=== PATIENT | female | born 1945 | race Caucasian/White ===

== ENCOUNTER → 2017-07-17 | Outpatient (CLI) | payer MEDICARE, OTHER ==
--- NOTE | 2017-07-19 15:46 | PE ---
Nuclear medicine PET/CT HISTORY: Breast cancer, initial Patient received 13.5 mCi F-18 FDG intravenously in delayed scanning performed from the skull base to the mid thighs. Localization and attenuation correction CT scan was performed. No comparisons Neck and chest: Adenopathy, multiple nodes are present within the left axilla, there is associated hypermetabolic upt sravan present within multiple nodes, SUV is only 2.6 and the smallest, 5.8 and largest node, 3 or 4 nod e suspected. Left breast mass is present with associated hypermetabolic uptake extending from the sof t tissue mass to the skin, SUV is greatest at 5.4. There is no evident lung mass. No pleural or peric ardial effusion. Coronary artery calcification present. No mediastinal adenopathy. There is right hil ar hypermetabolic uptake present, SUV is 5. Postop change noted to the right shoulder. Abdomen pelvis: No evident liver mass or retroperitoneal adenopathy. No suspicious hypermetabolic upt sravan. No evident ascites. Nonobstructive lower pole right renal calculus is noted incidentally. Cystic right adnexal mass shows internal septations and measures approximately 3 cm, no associated hypermet abolic uptake. Osseous structures are within normal limits. Degenerative disc change, facet arthropathy in the lumba r spine. No suspicious hypermetabolic uptake. IMPRESSION: Metastatic disease to the left axilla, abnormal hilar node on the right.
== END | disposition home or self-care (01) ==
LOC: RADPETMAIN 08:15
PROVIDERS: ATTEND Internal Medicine Hematology & Oncology
DX: C50.412 Malignant neoplasm of upper-outer quadrant of left female breast (principal); C79.89 Secondary malignant neoplasm of other specified sites
CPT/HCPCS: 78815; A9552

== ENCOUNTER → 2018-02-17 | Outpatient (CLI) | payer MEDICARE, OTHER ==
--- NOTE | 2018-02-17 10:24 | US ---
EXAMINATION TYPE: US venous doppler duplex UE RT DATE OF EXAM: 02/17/2018 COMPARISON: NONE CLINICAL HISTORY: M79.621 Pain in right upper arm, R22.31 Localized. Intermittent arm swelling, recen t hosp stay with right sided IV sticks SIDE PERFORMED: right Grayscale, color doppler, spectral doppler imaging performed of the deep veins of the right upper ext remity. There is normal flow, compressibility and vascular waveforms. Right Arm: neg for RUE dvt Results left on Lisa's machine at office at the time of the exam. IMPRESSION: No sonographic evidence of deep venous thrombosis within the right upper extremity.
== END | disposition home or self-care (01) ==
LOC: RADUSWWP 09:23
PROVIDERS: ATTEND Internal Medicine Hematology & Oncology
DX: M79.621 Pain in right upper arm (principal); R22.31 Localized swelling, mass and lump, right upper limb

== ENCOUNTER → 2019-10-26 | Outpatient (CLI) | payer MEDICARE, OTHER ==
[2019-10-26 09:53] LABS: African American GFR (CKD) >90 (>60 ml/min/1.73 sqM); Blood Urea Nitrogen 15 mg/dL (7-17); Non-African American GFR(CKD) 84 (>60 ml/min/1.73 sqM)
--- NOTE | 2019-10-26 11:47 | CT ---
EXAMINATION TYPE: CT ChestAbdPelvis w con DATE OF EXAM: 10/26/2019 COMPARISON: None HISTORY: BREAST CA F/U CT DLP: 2229.3 mGycm CONTRAST: CT scan of the chest, abdomen and pelvis is performed with Oral Contrast and with IV Contrast, patien t injected with 100 mL of Isovue 300. CT Chest: LUNGS: The lungs are clear and free of infiltrate or atelectasis. No pulmonary nodule or mass is det ected. No pleural effusion or CT evidence of interstitial lung disease. MEDIASTINUM: Thoracic aorta is of normal caliber. The heart is not enlarged. No evidence for media stinal mass or adenopathy. HILAR STRUCTURES: No evidence for mass. No hilar adenopathy is appreciated. OTHER: No significant abnormality. CONTRAST CT ABDOMEN AND PELVIS FINDINGS: LIVER/GB: No calcified gallstones. Simple hepatic cysts are noted. Biliary tree is of normal calibe r. PANCREAS: No inflammation. No distinct mass. SPLEEN: No splenic enlargement. No lesion seen. ADRENALS: No nodule. No thickening. KIDNEYS/BLADDER: No hydronephrosis. Large calculus mid to upper pole right kidney measuring 1.4 cm w ithout hydronephrosis. Bilobed cystic lesion mid pole right kidney extending posteriorly. Simple cyst mid to upper pole left kidney measuring 1.6 cm.. No distinct solid renal mass. BOWEL: Normal appendix. Normal bowel caliber. No inflammation. GENITAL ORGANS: Partially cystic mass right ovary measures 3.5 cm. Pelvic ultrasound is recommended f or further evaluation. Left ovary and uterus are unremarkable. LYMPH NODES: No greater than 1cm abdominal or pelvic lymph nodes are appreciated. AORTA: No significant abnormality. OSSEOUS STRUCTURES: No significant abnormality is seen. OTHER: No significant additional abnormality is seen. IMPRESSION: 1. No CT evidence to suggest metastatic disease to the chest abdomen or pelvis. 2. Right ovarian mass measures 3.5 cm. Pelvic ultrasound is recommended for further evaluation.
== END | disposition home or self-care (01) ==
LOC: RADCTMAIN 09:05
PROVIDERS: ATTEND Internal Medicine Hematology & Oncology
DX: N83.8 Other noninflammatory disorders of ovary, fallopian tube and broad ligament (principal); C50.419 Malignant neoplasm of upper-outer quadrant of unspecified female breast; Z88.5 Allergy status to narcotic agent
CPT/HCPCS: 82565; 84520; 71260; 74177; 36415; Q9967

== ENCOUNTER → 2019-11-03 | Outpatient (CLI) | payer MEDICARE, OTHER ==
--- NOTE | 2019-11-03 14:19 | US ---
EXAMINATION TYPE: US transvaginal DATE OF EXAM: 11/03/2019 COMPARISON: CT 2019 CLINICAL HISTORY: C50.419 Breast ca, R19.00 Pelvic mass rt ovary. Right ovarian mass seen on recent C T, 3, para 3, post menopausal, history of breast CA TECHNIQUE: Transvaginal exam only per ordering physician. Date of LMP: 1998 EXAM MEASUREMENTS: Uterus: 5.9 x 2.8 x 4.5 cm Endometrial Stripe: 0.5 cm Right Ovary: 3.7 x 3.3 x 2.9 cm Left Ovary: not seen 1. Uterus: anteverted, heterogeneous with multiple hypoechoic areas with largest measuring 1.7 x 1.5 x 1.5cm 2. Endometrium: wnl 3. Right Ovary: 3 hyperechoic areas seen with largest measuring 1.4 x 1.5 x 1.8cm 4. Left Ovary: not seen 5. Bilateral Adnexa: wnl 6. Posterior cul-de-sac: wnl IMPRESSION: 1. Multiple uterine masses likely in the basis of the uterine leiomyomas. 2. Right ovarian mass with 3 hyperechoic components may reflect dermoid. Mass of other etiology not e xcluded. Short-term follow-up advised.
== END | disposition home or self-care (01) ==
LOC: RADUSWWP 13:15
PROVIDERS: ATTEND Internal Medicine Hematology & Oncology
DX: N85.8 Other specified noninflammatory disorders of uterus (principal); N83.8 Other noninflammatory disorders of ovary, fallopian tube and broad ligament
CPT/HCPCS: 76830

== ENCOUNTER 2019-12-01 10:11 | Day surgery (SDC) | payer MEDICARE, OTHER ==
--- NOTE | 2019-11-23 20:39 | P.HPIHPCON ---
History of Present Illness H&P Date: 12/01/19 Chief Complaint: right-sided renal calculi Ms Hernandez 74-year-old female history of 1.4 cm right-sided renal calculi. Discussed with her the options of which includes observation, ESWL, ureteroscopy, and PCNL. She agreed to proceed with right-sided ureteroscopy. Discussed with her the risk and the benefit of the procedure. Discussed with her the risk which includes but not limited to bleeding, infection, injury to the ureter. I also discussed with her the potential of needing staged procedure given her stone size Consent for Procedure: I have explained the operation/procedure to the patient, including the risks, benefits, side effects, alternative therapies (including not receiving the proposed treatment or service), the likelihood of the patient achieving his/her goals, and potential recuperation problems for the procedure/sedation/analgesia, as well as any blood products, if indicated. I also explained to the patient the risks, benefits and side effects of the alternatives, as well as the risks related to not receiving the proposed procedure, care, treatment, or services. - Constitutional Constitutional: Denies chills, Denies fever - Cardiovascular Cardiovascular: Denies chest pain, Denies shortness of breath - Respiratory Respiratory: Denies cough, Denies 7 - Gastrointestinal Gastrointestinal: Denies abdominal pain, Denies diarrhea, Denies nausea, Denies vomiting - Genitourinary (Female) Genitourinary: Denies dysuria, Denies hematuria Past Medical History Past Medical History: GERD/Reflux, Hypertension Additional Past Medical History / Comment(s): RIGHT HAND INFECTION History of Any Multi-Drug Resistant Organisms: None Reported Past Surgical History: Joint Replacement, Orthopedic Surgery, Tonsillectomy Additional Past Surgical History / Comment(s): TOTAL RIGHT KNEE REPLACED. ORTHO: RIGHT TOTATOR CUFF, RIGHT BONE SPUR. RIGHT DETACHED RETINA. BILATERAL CATARACTS. Past Anesthesia/Blood Transfusion Reactions: Motion Sickness, Postoperative Nausea & Vomiting (PONV) Past Psychological History: No Psychological Hx Reported Past Alcohol Use History: None Reported Past Drug Use History: None Reported - Past Family History Mother Family Medical History: Cancer Additional Family Medical History / Comment(s): LUNG Sister(s) Additional Family Medical History / Comment(s): ONE SISTER, MS. THE OTHER, LUPUS & RA. Medications and Allergies Home Medications Medication Instructions Recorded Confirmed Type Aspirin [Adult Low Dose Aspirin EC] 81 mg PO DAILY 03/27/15 04/02/15 History Alanis 500 mg PO DAILY 03/27/15 04/02/15 History Labetalol [Trandate] 200 mg PO BID 03/27/15 04/02/15 History Lansoprazole [Prevacid] 15 mg PO QAM 03/27/15 04/02/15 History Meclizine [Antivert] 25 mg PO TID 03/27/15 04/02/15 History [place]-3 Fatty Acids [[place]-3] 1,000 mg PO DAILY 03/27/15 04/02/15 History Ubidecarenone [Co Q-10] 100 mg PO DAILY 03/27/15 04/02/15 History Vitamin B Complex 1 cap PO DAILY 03/27/15 04/02/15 History amLODIPine BESYLATE/BENAZEPRIL 1 tab PO QAM PRN 03/27/15 04/02/15 History [Lotrel 10-20 mg Capsule] Docusate [Colace] 100 mg PO BID #60 capsule 04/04/15 Rx HYDROcodone/APAP 10-325MG [[place] 1 tab PO Q4H PRN #90 tab 04/04/15 Rx 10-325] Allergies Allergy/AdvReac Type Severity Reaction Status Date / Time acetaminophen Allergy Nausea & Verified 03/27/15 11:27 [From Darvocet-N] Vomiting. DIZZINESS. propoxyphene napsylate Allergy Nausea & Verified 03/27/15 11:27 [From Darvocet-N] Vomiting. DIZZINESS. Surgical - Exam - General well developed, well nourished, no distress, no pain - Respiratory normal expansion, normal respiratory effort - Abdomen Abdomen: soft, non tender - Psychiatric oriented to time, oriented to person, oriented to place Assessment and Plan Assessment: 74-year-old female with history of 1.4 cm renal stone -OR for right sided ureteroscopy, holmium laser lithotripsy, stone basketing and stent placement
[2019-11-28 11:54] VITALS: BMI 32.2
[~2019-12-01 10:11] MED LIST: DEXAMETHASONE SOD PHOSPHATE 10 MG/ML 1 ML VIAL IV ONE; GENTAMICIN 120 MG in SODIUM CHLORIDE 0.9% 100 ML IVPB ONE; LACTATED RINGERS 1,000 ML IV SCH; LIDOCAINE 1% (10MG/ML) FOR IV START INTRADERMA PRN; ONDANSETRON 4 MG/2 ML VIAL IVP ONE
--- NOTE | 2019-12-01 10:33 | XR ---
EXAMINATION TYPE: XR KUB DATE OF EXAM: 12/01/2019 10:27 AM CLINICAL HISTORY: Presurgical study. History of breast cancer. Right-sided renal calculus. TECHNIQUE: Two Upright KUB images of the abdomen are obtained. COMPARISON: CT October 26, 2019. FINDINGS: Redemonstration of dominant 14 mm calculus centrally right kidney at L4 level. Overall nonobstructive bowel gas pattern. Slightly elevated right hemidiaphragm redemonstrated. Moder ate 2 severe axial joint space loss in both hips again seen. IMPRESSION: Stable dominant right-sided renal calculus.
[2019-12-01] MEDS ORDERED: ONDANSETRON 4 MG/2 ML VIAL ONE ×2 (11:20→16:23)
[2019-12-01] MEDS ORDERED: MIDAZOLAM 2 MG/2 ML VIAL IV ONE (11:44)
[2019-12-01] MEDS ORDERED: fentaNYL (PF) 50 MCG/ML 2 ML AMP ONE (12:14)
[2019-12-01] MEDS ORDERED: MIDAZOLAM 2 MG/2 ML VIAL ONE (12:14)
[2019-12-01] MEDS ORDERED: LIDOCAINE 1% INJ 10MG/ML (20 ML MDV) ONE (12:14)
[2019-12-01] MEDS ORDERED: PROPOFOL 10 MG/ML 20 ML VIAL IV ONE (12:14)
[2019-12-01] MEDS ORDERED: IOPAMIDOL-370 50ML BTL MISCELLANE ONE ×2 (12:49)
--- NOTE | 2019-12-01 14:27 | P.OP ---
Date of Procedure: 12/01/19 Preoperative Diagnosis: right renal calculi Postoperative Diagnosis: same Procedure(s) Performed: cystoscopy, right reterograde pyelogram, ureteroscopy, holmium laser lithotripsy, stone basketting and stent placement Anesthesia: ELIZABETHA Surgeon: Conner Jewell Estimated Blood Loss (ml): 5 Pathology: other (right renal calculi) Disposition: PACU Indications for Procedure: Ms Hernandez 74-year-old female history of 1.4 cm right-sided renal calculi. Discussed with her the options of which includes observation, ESWL, ureteroscopy, and PCNL. She agreed to proceed with right-sided ureteroscopy. Discussed with her the risk and the benefit of the procedure. Discussed with her the risk which includes but not limited to bleeding, infection, injury to the ureter. I also discussed with her the potential of needing staged procedure given her stone size Operative Findings: right sided renal stone Description of Procedure: Patient was brought to the operating room general anesthesia was induced. She was prepped and draped in sterile fashion placed in dorsal lithotomy position. Cystoscope fitted with a 21 sheath was inserted per urethra, cystoscopy was performed showed no abnormality of within the bladder. Of note patient had a significant cystocele and a rectocele. Attention was then carried to the right ureteral orifice which was intubated with a 6-Libyan open ended catheter, retrograde peylogram was performed which showed no filling defect along the course of the ureter. At this time a sensor wire was advanced through the catheter catheter was removed with the wire in place. Next a 11 x 13-Libyan access sheath was passed over the wire. Next a flexible ureteroscope was inserted through the access sheath and the stone was encountered in the renal pelvis. Using the holmium laser the stone was initially dusted and further fragmented into smaller fragments. Larger fragments were removed using the Lele stone basket. repeat renoscopy demonstrated no sizable fragments or injury to the kidney. Repeat renoscopy was performed to ensure all calyces were evaluated for any fragments. Pullback ureteroscopy was performed which showed no injury to the ureter or any ureteral fragments. At this time a 6-Libyan by 24 cm stent was passed over the wire, proximal curl was visualized on fluoroscopy and distal curl was visualized using the cystoscope. The bladder was emptied and the case. The patient was awakened from anesthesia and taken recovery in stable condition
[2019-12-01] MEDS: HYDROmorphone 0.5 MG/0.5 ML SYRINGE IVP PRN ×3 (14:38→14:56)
[2019-12-01 14:41] VITALS: TEMP 97.8
--- NOTE | 2019-12-01 15:39 | FL ---
EXAMINATION TYPE: FL urography retrograde DATE OF EXAM: 12/01/2019 COMPARISON: CT October 26, 2019 HISTORY: Right kidney stone. TECHNIQUE: Fluoroscopy. FINDINGS: Fluoroscopic guidance was provided during right ureter stent insertion procedure performed by Dr. Jewell. A total of 55 seconds of fluoroscopic time was utilized during the procedure and sin gle spot image is acquired. Single image shows advancement of guidewire into the collecting system. IMPRESSION: As Above.
[2019-12-01 15:43] VITALS: RESP 20
[2019-12-01 15:53] VITALS: BP 109/45; PULSE 67
[2019-12-01] MEDS ORDERED: ONDANSETRON 4 MG/2 ML VIAL IVP ONE (16:24)
== END 2019-12-01 17:00 | disposition home or self-care (01) ==
LOC: OR 10:11
PROVIDERS: ATTEND Urology
DX: N20.0 Calculus of kidney (principal); I10 Essential (primary) hypertension; E78.5 Hyperlipidemia, unspecified; K21.9 Gastro-esophageal reflux disease without esophagitis; Z87.442 Personal history of urinary calculi; Z79.82 Long term (current) use of aspirin; Z79.899 Other long term (current) drug therapy; Z88.5 Allergy status to narcotic agent; Z90.89 Acquired absence of other organs; Z96.651 Presence of right artificial knee joint; Z98.41 Cataract extraction status, right eye; Z98.42 Cataract extraction status, left eye; Z98.890 Other specified postprocedural states; Z80.1 Family history of malignant neoplasm of trachea, bronchus and lung; Z82.69 Family history of other diseases of the musculoskeletal system and connective tissue
CPT/HCPCS: 82365; 74420; 74018; 52356; C2625; C1758; C1769 ×2; J2250; J1100; J0690; J2405; J2001; J3010; J1580; J2704; J1170; Q9967

== ENCOUNTER → 2019-12-13 | Outpatient (CLI) | payer MEDICARE, OTHER ==
--- NOTE | 2019-12-13 08:43 | XR ---
EXAMINATION TYPE: XR KUB DATE OF EXAM: 12/13/2019 8:31 AM CLINICAL HISTORY: Right-sided kidney stone. Lithotripsy treatment November 30. TECHNIQUE: Single supine KUB image of the abdomen is obtained. COMPARISON: CT October 26, 2019. Abdominal x-ray December 01, 2019 FINDINGS: Interval successful fragmentation of the dominant 14 mm right renal calculus with 3-5 small fracture fragments identified on current study at inferior L4 level. Largest measures roughly 12 x 3 mm. No left-sided nephrolithiasis. Overall nonspecific but felt to be nonobstructive bowel gas pattern. Slightly elevated right hemidiap hragm redemonstrated. Moderate to severe axial joint space loss in both hips redemonstrated. IMPRESSION: Interval successful fragmentation of the dominant 14 mm right renal calculus.
== END | disposition home or self-care (01) ==
LOC: RADXRMAIN 08:15
PROVIDERS: ATTEND Urology
DX: N20.0 Calculus of kidney (principal)
CPT/HCPCS: 74018

== ENCOUNTER → 2019-12-28 | Outpatient (CLI) | payer MEDICARE, OTHER ==
--- NOTE | 2019-12-28 09:33 | XR ---
EXAMINATION TYPE: XR KUB DATE OF EXAM: 12/28/2019 HISTORY: Pain Comparison: 12/13/2019 Single KUB is submitted for interpretation. Findings: Right renal calculi: 5 mm calculus overlying the lower pole of the right kidney. Larger calculus seen on prior study is not redemonstrated at this time. No additional calculi seen at this time. Right ureteral calculi: None Visualized. Left renal calculi: None Visualized. Left ureteral calculi: None Visualized. Pelvic calcifications: None Visualized. Bowel gas pattern is unremarkable. No free air. No mass effects. IMPRESSION: 1. 5 mm calculus overlying the lower pole of the right kidney. Larger calculus seen on prior study is not redemonstrated at this time.
== END | disposition home or self-care (01) ==
LOC: RADXRMAIN 09:05
PROVIDERS: ATTEND Urology
DX: N20.0 Calculus of kidney (principal)
CPT/HCPCS: 74018

== ENCOUNTER → 2020-01-11 | Outpatient (CLI) | payer MEDICARE, OTHER ==
--- NOTE | 2020-01-11 09:42 | XR ---
EXAMINATION TYPE: XR KUB DATE OF EXAM: 01/11/2020 COMPARISON: 12/28/2019 INDICATION: Stones TECHNIQUE: Single view abdomen frontal projection FINDINGS: There is a normal bowel gas pattern. Air is within the splenic flexure. Psoas margins are normal. No organomegaly is present. Previous right inferior pole renal stone is not well-visualized on the current exam IMPRESSION: 1. Unremarkable Abdomen 2. Previous right renal stone not clearly delineated on the current exam
== END | disposition home or self-care (01) ==
LOC: RADXRMAIN 09:09
PROVIDERS: ATTEND Urology
DX: N20.0 Calculus of kidney (principal)
CPT/HCPCS: 74018

== ENCOUNTER → 2020-01-30 | Outpatient (CLI) | payer MEDICARE, OTHER ==
--- NOTE | 2020-01-30 13:09 | US ---
EXAMINATION TYPE: US kidneys/renal and bladder DATE OF EXAM: 01/30/2020 COMPARISON: CT 10/26/2019. CLINICAL HISTORY: N20.1 CALCULUS OF URETER. EXAM MEASUREMENTS: Right Kidney: 12.0 x 4.3 x 4.5 cm Left Kidney: 12.0 x 4.6 x 4.4 cm Patient of large body habitus. Technically difficult limited study. Right Kidney: mild hydro, echogenic foci, this may be a calcified artery vs small stone Left Kidney: similar echogenic foci seen in this kidney as well Bladder: patient unable to well fill bladder, wnl as seen, limited visualization Urinary bladder is not greatly distended. Bilateral distal ureter jets not identified. Persistent mil d right-sided hydronephrosis. Cannot identify prior lower pole calculus likely successful interval tr eatment. Stable 1.9 cm thin-walled cyst upper pole right kidney image 19 and 20. No left-sided hydronephrosis or concerning renal mass. IMPRESSION: Stable mild right-sided hydronephrosis. No left-sided hydronephrosis.
== END | disposition home or self-care (01) ==
LOC: RADUSWWP 12:15
PROVIDERS: ATTEND Urology
DX: N13.30 Unspecified hydronephrosis (principal)
CPT/HCPCS: 76770

== ENCOUNTER → 2020-03-29 | Outpatient (CLI) | payer MEDICARE, OTHER ==
[2020-03-29 11:34] LABS: Basophils % (A) 1 %; Eosinophils # (A) 0.1 k/uL (0-0.7); Eosinophils % (A) 2 %; HCT 41.2 % (34.0-46.0); HGB 13.5 gm/dL (11.4-16.0); Lymphocytes # (A) 1.1 k/uL (1.0-4.8); Lymphocytes % (A) 23 %; MCH 30.4 pg (25.0-35.0); MCHC 32.7 g/dL (31.0-37.0); MCV 92.9 fL (80.0-100.0); Monocytes # (A) 0.5 k/uL (0-1.0); Monocytes % (A) 11 %; Neutrophils % (A) 61 %; Platelet Count 218 k/uL (150-450); RBC 4.43 m/uL (3.80-5.40); RDW 13.3 % (11.5-15.5); WBC 4.9 k/uL (3.8-10.6)
[2020-03-29 11:49] LABS: African American GFR (CKD) >90 (>60 ml/min/1.73 sqM); Anion Gap 8 mmol/L; Blood Urea Nitrogen 10 mg/dL (7-17); Carbon Dioxide 27 mmol/L (22-30); Chloride 107 mmol/L (98-107); Non-African American GFR(CKD) 84 (>60 ml/min/1.73 sqM); Potassium 4.3 mmol/L (3.5-5.1); Sodium 142 mmol/L (137-145)
== END | disposition home or self-care (01) ==
LOC: LABWHC1 10:06
PROVIDERS: ATTEND Obstetrics & Gynecology Obstetrics
DX: Z01.818 Encounter for other preprocedural examination (principal); N81.3 Complete uterovaginal prolapse
CPT/HCPCS: 36415; 80051; 82565; 84520; 85025; 86850; 86900; 86901; 87086

== ENCOUNTER 2020-04-08 07:18 | Day surgery (SDC) | payer MEDICARE, OTHER ==
[2020-04-04 13:55] VITALS: BMI 32.4
--- NOTE | 2020-04-04 15:59 | HP ---
HISTORY AND PHYSICAL This is a 74-year-old white female 3, para 3-0-0-3 who presents as a referral from Dr. Stewart with an increased pressure of her perineal body and urinary incontinence. She was previously noted to have a grade 2 cystocele, which has increased in size since most recent examination. She did see Dr. Gar preoperatively with a consideration of a sling procedure, his opinion was that it was not necessary. Instead, the patient presents today for vaginal hysterectomy and cystocele repair. REVIEW OF SYSTEMS: Otherwise negative. PAST MEDICAL HISTORY: Significant for breast cancer, essential hypertension, GERD, kidney stones, onychomycosis, osteoarthritis, and vertigo. PAST SURGICAL HISTORY: Adenoidectomy and tonsillectomy, bilateral mastectomies, rotator cuff repair, knee replacement, heel spur surgery, cataract and eye surgery, carpal tunnel release. CURRENT MEDICATIONS: Amlodipine 5 mg as needed. Anastrozole 1 mg tab once daily. Chlorthalidone 25 mg tablets once daily. Clotrimazole 10 mg mucous membrane windy. Coenzyme-Q 10 mg daily, labetalol 200 mg twice daily, loratadine 10 mg tab once daily. Magnesium 250 mg tablets every day. Meclizine 25 mg tablets t.i.d., nystatin 100,000 units/g of topical cream b.i.d. p.r.n., omeprazole 20 mg once daily, ondansetron 4 mg p.r.n. PreserVision twice daily, trazodone 150 mg oral tablet twice daily. Vitamin B12 and folic acid as well as vitamin D daily. ALLERGIES: Include DARVOCET and PROPOXYPHENE, reactions unnoted in the chart. FAMILY HISTORY: Significant for rheumatoid arthritis, skin cancer, lung cancer, lupus, diabetes, endometrial cancer, cervical cancer, multiple sclerosis. REPRODUCTIVE HISTORY: Significant for normal spontaneous vaginal deliveries x3, unremarkable. SOCIAL HISTORY: Patient has never been a smoker, she denies alcohol or drug use. She is . On examination, patient is 5 foot 4 inches, 190 pounds, BMI 32.61, blood pressure 124/64. HEENT: Exam reveals good dentition, no thyromegaly, normal range of motion in the neck. Breasts are bilaterally absent surgically, chest wall is clear. Abdomen is soft and nontender, no organosplenomegaly, no pain, no CVA tenderness. Active bowel sounds. Cardiac exam reveals a regular rate and rhythm with no murmur, click, or rub. Lungs are clear to auscultation in all rutherford anteriorly and posteriorly. Extremities revealed no edema, no cyanosis, good peripheral pulses. On pelvic exam, external genitalia appears age-appropriate. Cervix is healthy in appearance, there is a grade 3 uterine prolapse noted as well as a grade 3 cystocele. No obvious rectocele. FIT stool sample is negative. Neurologic exam reveals patient to be grossly oriented x3, normal mood and affect. IMPRESSION: Increasingly symptomatic grade 3 uterine prolapse and cystocele. Here for surgical correction, declining option of pessary use. Preoperative urologic examination has been performed, the patient is not judged to be a candidate for sling procedure. PLAN: We will proceed with vaginal hysterectomy, possible bilateral salpingo-oophorectomy, and cystocele repair. The risks, benefits, and alternatives of this plan have been discussed with the patient in detail. She knows of the risk of poor control, damage to the bladder, ureters, bowel, blood vessels, or indeed any pelvic or abdominal organs. She understands that the ovaries may not be able to be removed vaginally, but would like them removed for the history of breast cancer. The possibility of abdominal hysterectomy is also discussed. All questions answered, the ACOG pamphlet on the procedure have also been discussed. MMODL / IJN: [id number] /
[~2020-04-08 07:18] MED LIST changes: -DEXAMETHASONE SOD PHOSPHATE 10 MG/ML 1 ML VIAL IV ONE; +DEXAMETHASONE SOD PHOSPHATE 4 MG/ML 1 ML VIAL IV ONE; -GENTAMICIN 120 MG in SODIUM CHLORIDE 0.9% 100 ML IVPB ONE; +HYDROmorphone 0.5 MG/0.5 ML SYRINGE IVP PRN; -LACTATED RINGERS 1,000 ML IV SCH
[2020-04-08] MEDS: LACTATED RINGERS 1,000 ML IV SCH ×2 (08:04→12:24)
[2020-04-08] MEDS ORDERED: MIDAZOLAM 2 MG/2 ML VIAL IVP ONE (08:54)
[2020-04-08] MEDS ORDERED: LIDOCAINE 1% INJ 10MG/ML (20 ML MDV) ONE (09:25)
[2020-04-08] MEDS ORDERED: SUCCINYLCHOLINE CHLORIDE 100 MG/5 ML SYR IV ONE (09:25)
[2020-04-08] MEDS ORDERED: PROPOFOL 10 MG/ML 20 ML VIAL IV ONE (09:25)
[2020-04-08] MEDS ORDERED: fentaNYL (PF) 50 MCG/ML 2 ML AMP ONE (09:25)
[2020-04-08] MEDS ORDERED: MORPHINE SULFATE (PF) 0.3 MG/0.3 ML SYR ONE (09:25)
[2020-04-08] MEDS ORDERED: LABETALOL 5 MG/ML VIAL MDV ONE (09:25)
[2020-04-08] MEDS ORDERED: MIDAZOLAM 2 MG/2 ML VIAL ONE (09:25)
[2020-04-08] MEDS ORDERED: BACITRACIN ZINC 500 UNIT/GM OINT 28.4 GM TUBE TOPICAL ONE ×2 (09:54→10:26)
[2020-04-08] MEDS ORDERED: VASOPRESSIN 20 UNIT/ML 1 ML VIAL IM ONE ×2 (09:54)
[2020-04-08] MEDS ORDERED: ONDANSETRON 4 MG/2 ML VIAL IVP PRN (10:50)
[2020-04-08] MEDS ORDERED: METOCLOPRAMIDE 5 MG/ML 2 ML VIAL IVP PRN (10:50)
[2020-04-08] MEDS ORDERED: SIMETHICONE 80 MG CHEWABLE PO PRN (10:50)
--- NOTE | 2020-04-08 10:50 | P.OP ---
Date of Procedure: 04/08/20 Preoperative Diagnosis: Symptomatic grade 3 cystocele and uterine prolapse Postoperative Diagnosis: Same, ovaries very smallnormal appearing and quite high in the peritoneal cavity bilaterally. Procedure(s) Performed: Vaginal hysterectomy, anterior colporrhaphy Anesthesia: LILIAN Surgeon: Ivonne Loera [employer] Worker #1: Neha Steinberg Estimated Blood Loss (ml): 75 IV fluids (ml): 300 Urine output (ml): 600 Pathology: other (Cervix and uterus) Condition: stable Disposition: PACU Indications for Procedure: Increasingly symptomatic perineal bulge Operative Findings: Ovaries streaked, normal to inspection, very high in the peritoneal cavity bilaterally, left in situ Description of Procedure: Patient is brought to the operating suite after spinal with Duramorph is placed in the preoperative area. She is placed in the dorsal lithotomy position after a general anesthetic is administered. The perineal body, cervix, vagina are all prepped and draped in usual sterile fashion. The appropriate timeout is performed to assure proper patient and procedural identification. Antibiotics are given. The bladder is drained for approximate 400 mL of clear yellow urine. Weighted speculum was placed into the vagina. Anterior lip of the cervix grasped with a double-tooth tenaculum. The cervix is injected circumferentially with a dilute Pitressin solution. A gakona blade scalpel is used to incise the mucosa circumferentially with a V positioning in the back at 6:00. Sponge rolled finger is used to sweep the mucosa from the underlying fascial plane. M marbella scissors are used to enter the peritoneal cavity at 6:00, it is suture tied with 2-0 Vicryl and held with a hemostat. The large billed speculum is then placed into the peritoneal cavity. At all times the mucosa is swept well from the operative field to avoid bladder and/or ureteral injury. There is unusual scar tissue on the right aspect of the vagina, at the attachment of the cervical neck. Uterosacral cardinal ligaments are identified, clamped cut and suture ligated utilizing 0 Vicryl suture which is used for the entire remaining portion of the hysterectomy. The uterosacral ligaments are held laterally with a hemostat for vaginal cuff closure. Uterine vasculature is identified, clamped cut and suture ligated. 2 additional sutures are taken superior to the vessels. The anterior peritoneum is entered at 12:00 and uterus is "walked out" posteriorly. Gabby clamps are used across the final pedicles and the uterus and cervix are removed and sent to pathology. 0 Vicryl suture is used to tie in a Santosh stitch, flashed, and retied a pedicles for excellent hemostasis. A sponge stick is then used and the ovaries are inspected. They are very small, streaked, high in the peritoneal cavity bilaterally and therefore left in situ. I judgment is that removing the ovaries would carry with it a greater risk than leaving them in situ at this time. All pedicles once again visualized and noted to be dry. The speculum is changed to the shallow billed speculum and the 2-0 Vicryl suture is brought around in a pursestring fashion to close the peritoneum. The uterosacral cardinal ligaments are brought across now to incorporate the opposite ligament and vaginal mucosa. 2 additional [id number] sutures are used on the vaginal cuff. The anterior repair is then started, the remaining mucosal defect is held with Allis clamps. The anterior vaginal mucosa is injected in the midline with the same dilute Pitressin solution. Metzenbaum scissors are used to undermine the mucosa to the apex of the defect, approximately 1.5 cm inferior to the urethra. Sponge rolled finger is used to separate the underlying fascial plane from the above mucosa. Moreno catheter is then placed, an additional 200 mL of clear yellow urine is drained. 2-0 Vicryl is used in an interrupted fashion to bring the fascial edges together in the midline thereby completely reducing the cystocele. Metzenbaum scissors are used to trim the redundant mucosa. 2-0 Vicryl sutures used in a running locking stitch now to repair the remaining anterior vaginal mucosa. The vagina is clean and dry. It is packed with one-inch iodophor gauze with basic tracing. All sponge needle and enhancement counts are correct at the end of my procedure. Patient is brought back to recovery room in very good con dition with stable vital signs including a blood pressure 144/69, pulse 57, 98% O2 saturation.
[2020-04-08] MEDS: KETOROLAC 15 MG/ML 1 ML VIAL IVP PRN ×2 (11:14→19:41)
[2020-04-08] MEDS: diphenhydrAMINE 50 MG/ML 1 ML VIAL IVP PRN ×2 (12:23→19:01)
[2020-04-08] MEDS ORDERED: NALOXONE 0.4 MG/ML 1 ML VIAL IV PRN (13:04)
--- NOTE | 2020-04-08 13:07 | P.ANPRN ---
Procedure Note - Anesthesia - Epidural/Spinal Spinal Time Out Performed: Yes Date of Procedure: 04/08/20 Procedure Start Time: 08:53 Procedure Stop Time: 09:07 Location of Patient: PreOp Indication: Acute Post-Operative Pain Sedation Type: Sedate with meaningful contact maintained Preparation: Sterile Prep Position: Sitting Needle Guage: 25 Injectate: Other (Duramorph 200mcg, fentanyl 25mcg) Blood Aspirated: No Pain Paresthesia on Injection Noted: No Events: Uneventful and Well Tolerated
[2020-04-08] MEDS: LABETALOL 200 MG TAB PO SCH (21:12)
[2020-04-08] MEDS: MECLIZINE 25 MG TAB PO PRN (21:13)
--- NOTE | 2020-04-09 06:44 | P.PN ---
Progress Note - Text Progress Note Date: 04/09/20 Anesthesia Postop day 1 Subjective: Status Post vaginal hysterectomy with Duramorph. Patient seen and examined. Doing well without complaint. VAS 0. Nausea yesterday now resolved. No vomiting. No pruritus. Afebrile. Gross lower extremity strength intact. Spinal site intact without induration. Without apparent anesthetic complications. Objective: Vital signs reviewed Heart: Regular Rate Lungs: Good chest excursion Abdomen: Appears nondistended Assessment: Status post vaginal hysterectomy with Duramorph postop day 1 Plan: Continue current care with your medical management.
--- NOTE | 2020-04-09 07:45 | P.DS ---
Providers Date of admission: 04/08/20 Expected date of discharge: 04/09/20 Attending physician: Ivnone Loera Primary care physician: [facility] Course: This is a 74-year-old female who presented with a symptomatic uterine prolapse and cystocele. She is not sexually active, denied incontinence. After thorough consultation she elected to proceed with vaginal hysterectomy and cystocele repair. Please see my dictated history and physical for details. Yesterday patient underwent a vaginal hysterectomy and cystocele repair. The ovaries were very high in the pelvis bilaterally, small and unremarkable to inspection, and therefore left in situ. She did well intraoperatively with an estimate a blood loss of 75 mL's. Vagina was packed with iodoform gauze and Moreno catheter placed. Please see my dictated operative note for details. This morning the patient is doing well. She is passing flatus, ambulating, and tolerating regular food without difficulty. Vital signs are stable and she is afebrile. She has been started back on her labetalol as preoperatively ordered. Vaginal packing is removed, Moreno catheter discontinued. We will attempt bladder training this morning. Pending successful training, patient will be discharged home later this morning or this afternoon. She appears to be in very good condition for discharge home. She will follow-up with me in the office in 2 weeks. I have reminded her no intercourse, tampons or douching. She will use [id number] Motrin, 600 mg every 6 hours or 800 mg every 8 hours, alternating with extra strength Tylenol. I have reminded her no heavy lifting, no intercourse tampons or douching. She will call with any fevers shakes or chills, foul smelling or bloody vaginal discharge, with any pain not alleviated by [id number] products, or indeed with any concerns. Assessment: Doing well postoperative day #1 Patient Condition at Discharge: Good Plan - Discharge Summary Discharge Rx Participant: No New Discharge Prescriptions: No Action amLODIPine BESYLATE/BENAZEPRIL [Lotrel 10-20 mg Capsule] 1 tab PO QAM Vitamin B Complex 1 cap PO DAILY Ubidecarenone [Co Q-10] 100 mg PO DAILY Meclizine [Antivert] 25 mg PO BID Lansoprazole [Prevacid] 15 mg PO QAM Labetalol [Trandate] 200 mg PO BID Penn Laird-3 Fatty Acids [Penn Laird-3] 1,000 mg PO DAILY Vit C/E/Zn/Coppr/Lutein/Zeaxan [Preservision Areds 2 Softgel] 2 each PO DAILY Anastrozole 1 mg PO DAILY Discharge Medication List Labetalol [Trandate] 200 mg PO BID 03/27/15 [History] Lansoprazole [Prevacid] 15 mg PO QAM 03/27/15 [History] Meclizine [Antivert] 25 mg PO BID 03/27/15 [History] Penn Laird-3 Fatty Acids [Penn Laird-3] 1,000 mg PO DAILY 03/27/15 [History] Ubidecarenone [Co Q-10] 100 mg PO DAILY 03/27/15 [History] Vitamin B Complex 1 cap PO DAILY 03/27/15 [History] amLODIPine BESYLATE/BENAZEPRIL [Lotrel 10-20 mg Capsule] 1 tab PO QAM 03/27/15 [History] Vit C/E/Zn/Coppr/Lutein/Zeaxan [Preservision Areds 2 Softgel] 2 each PO DAILY 11/28/19 [History] Anastrozole 1 mg PO DAILY 04/04/20 [History] Follow up Appointment(s)/Referral(s): Ivonne Loera MD [STAFF PHYSICIAN] - 2 Weeks Discharge Disposition: HOME SELF-CARE
[2020-04-09 07:49] VITALS: BP 140/70; PULSE 70; TEMP 98.2
[2020-04-09] MEDS: MECLIZINE 25 MG TAB PO PRN (07:55)
[2020-04-09] MEDS: LABETALOL 200 MG TAB PO SCH (07:55)
[2020-04-09 10:31] VITALS: RESP 17
[2020-04-09] MEDS ORDERED: ACETAMINOPHEN TAB 325 MG TAB PO PRN (10:52)
== END 2020-04-09 11:50 | disposition home or self-care (01) ==
LOC: OR 07:18 → 4FBP 11:14 → OR 04-09 11:50
PROVIDERS: ATTEND Obstetrics & Gynecology
DX: N81.3 Complete uterovaginal prolapse (principal); N80.0 Endometriosis of uterus; D25.1 Intramural leiomyoma of uterus; N88.8 Other specified noninflammatory disorders of cervix uteri; I10 Essential (primary) hypertension; K21.9 Gastro-esophageal reflux disease without esophagitis; Z79.811 Long term (current) use of aromatase inhibitors; Z79.899 Other long term (current) drug therapy; Z88.5 Allergy status to narcotic agent; Z88.8 Allergy status to other drugs, medicaments and biological substances; M19.90 Unspecified osteoarthritis, unspecified site; Z87.01 Personal history of pneumonia (recurrent); Z83.3 Family history of diabetes mellitus; Z80.1 Family history of malignant neoplasm of trachea, bronchus and lung; Z96.651 Presence of right artificial knee joint; Z90.89 Acquired absence of other organs; Z98.41 Cataract extraction status, right eye; Z98.42 Cataract extraction status, left eye; Z98.890 Other specified postprocedural states; Z85.3 Personal history of malignant neoplasm of breast; Z92.21 Personal history of antineoplastic chemotherapy; Z87.442 Personal history of urinary calculi; Z90.13 Acquired absence of bilateral breasts and nipples; B35.1 Tinea unguium; Z80.8 Family history of malignant neoplasm of other organs or systems; Z80.49 Family history of malignant neoplasm of other genital organs; Z82.61 Family history of arthritis
CPT/HCPCS: 88307; 58260; 57240; J2250; J1200; J1100; J0690; J2405; J1885; 86850; 86900; 86901

== ENCOUNTER → 2021-03-18 | Outpatient (CLI) | payer MEDICARE, OTHER ==
--- NOTE | 2021-03-19 07:55 | CT ---
EXAMINATION TYPE: CT chest w con DATE OF EXAM: 03/18/2021 COMPARISON: Chest CT June 26, 2019 HISTORY: SOB, pleural effusion CT DLP: 358.4 mGycm. Automated Exposure Control for Dose Reduction was Utilized. TECHNIQUE: CT scan of the thorax is performed following with IV Contrast, patient injected with 100 mL of Isovue 300. FINDINGS: LUNGS: New moderate to large size right pleural effusion extending to lung apex level. Associated rig ht midlung compressive atelectasis . Suspect a slight mediastinal shift to the left. Left lung shows mild linear scarring and/or atelectasis. The tracheobronchial tree is patent. MEDIASTINUM: There is new bilateral hilar adenopathy. For reference right hilar lymph node measures 2 .1 x 1.9 cm axial image 24. New 2.5 x 2.0 right tracheobronchial adenopathy axial image 20. No perica rdial effusion is seen. OTHER: There are 2 suspicious vague hypodense lesions just over 1.0 cm and near 1.0 cm in the liver a xial image 46 and 49. Metallic hardware from right shoulder surgery is redemonstrated. Osseous struc tures are demineralized. Underlying scoliosis. Exaggerated kyphosis. IMPRESSION: New moderate to large size right pleural effusion. New thoracic adenopathy. Suspicious fo ci in the liver worrisome for metastatic disease. Follow-up advised. Advised repeat contrast CT abdom en and pelvis to assess for possible primary neoplasm and further assess for liver lesions. Consider thoracentesis for therapeutic and/or diagnostic benefit.
== END | disposition home or self-care (01) ==
LOC: RADCTMAIN 15:37
PROVIDERS: ATTEND Family Medicine
DX: J91.8 Pleural effusion in other conditions classified elsewhere (principal)
CPT/HCPCS: 71260; Q9967

== ENCOUNTER 2021-03-21 13:20 | Inpatient (IN) | payer MEDICARE, OTHER ==
--- NOTE | 2021-03-21 14:58 | XR ---
EXAMINATION TYPE: XR chest 2V DATE OF EXAM: 03/21/2021 COMPARISON: Chest CT 3 days ago HISTORY: Dyspnea. TECHNIQUE: Frontal and lateral views of the chest are obtained. FINDINGS: There is moderate to large size right pleural effusion slightly larger from recent CT. Mil d central vascular congestion and cardiomegaly redemonstrated. Surgical changes right shoulder partia lly imaged. IMPRESSION: Moderate to large size right pleural effusion is felt to have increased in size from CT exam 3 days earlier.
[2021-03-21 15:13] LABS: ALT 28 U/L (4-34); AST 35 U/L (14-36); African American GFR (CKD) >90 (>60 ml/min/1.73 sqM); Albumin 3.8 g/dL (3.5-5.0); Alkaline Phosphatase 103 U/L (38-126); Anion Gap 6 mmol/L; Blood Urea Nitrogen 10 mg/dL (7-17); Calcium 9.5 mg/dL (8.4-10.2); Carbon Dioxide 22 mmol/L (22-30); Chloride 109 mmol/L (98-107); Glucose 103 mg/dL (74-99); Non-African American GFR(CKD) >90 (>60 ml/min/1.73 sqM); Sodium 137 mmol/L (137-145); Total Bilirubin 0.7 mg/dL (0.2-1.3); Total Protein 7.2 g/dL (6.3-8.2)
[2021-03-21 15:16] LABS: Basophils % (A) 1 %; Eosinophils # (A) 0.1 k/uL (0-0.7); Eosinophils % (A) 1 %; HGB 14.7 gm/dL (11.4-16.0); Lymphocytes # (A) 1.2 k/uL (1.0-4.8); Lymphocytes % (A) 12 %; MCH 31.8 pg (25.0-35.0); MCHC 34.2 g/dL (31.0-37.0); MCV 93.1 fL (80.0-100.0); Monocytes # (A) 0.8 k/uL (0-1.0); Monocytes % (A) 9 %; Neutrophils # (A) 7.2 k/uL (1.3-7.7); Neutrophils % (A) 76 %; Platelet Count 243 k/uL (150-450); RBC 4.62 m/uL (3.80-5.40); WBC 9.5 k/uL (3.8-10.6)
[2021-03-21 15:28] LABS: Potassium 4.4 mmol/L (3.5-5.1)
[2021-03-21 15:31] LABS: Partial Thromboplastin Time 22.3 sec (22.0-30.0); Prothrombin Time 10.7 sec (9.0-12.0)
[2021-03-21] MEDS ORDERED: FUROSEMIDE 10 MG/ML 4 ML VIAL IV STA (15:44)
[2021-03-21] MEDS ORDERED: NALOXONE 0.4 MG/ML 1 ML VIAL IV PRN (16:01)
--- NOTE | 2021-03-21 16:08 | ED ---
General Adult HPI - General Chief complaint: Shortness of Breath Stated complaint: Plural Fusion Time Seen by Provider: 03/21/21 14:06 Source: patient, family, RN notes reviewed, old records reviewed Mode of arrival: ambulatory Limitations: no limitations - History of Present Illness Initial comments: Patient is a 75-year-old female with past medical history remarkable for GERD, hypertension, breast cancer who presents emergency Department complaining of shortness of breath. Patient had a CT done a few days ago which revealed a right sided pleural effusion which is new. Patient was sent here due to her continued shortness of breath and for the suspected drainage. She denies any chest pain, fevers. Does endorse a nonproductive cough. Denies any nausea, vomiting, abdominal pain. She has no other acute complaints at this time. She states she does have some mild shortness of breath. She has no history of pleural effusion. She does believe her cancer is in remission. - Related Data Home Medications Medication Instructions Recorded Confirmed Labetalol [Trandate] 400 mg PO BID 03/27/15 03/21/21 Meclizine [Antivert] 25 mg PO BID 03/27/15 03/21/21 Vit C/E/Zn/Coppr/Lutein/Zeaxan 1 tab PO BID 11/28/19 03/21/21 [Preservision Areds 2 Softgel] Cefuroxime Axetil [Ceftin] 500 mg PO BID 03/21/21 03/21/21 Clotrimazole/Betameth Cream 1 applic TOPICAL BID PRN 03/21/21 03/21/21 [Lotrisone] Cyanocobalamin (Vitamin B-12) 2,000 mcg PO DAILY 03/21/21 03/21/21 [Vitamin B-12] Ipratropium-Albuterol Nebulize 3 ml INHALATION RT-Q4H PRN 03/21/21 03/21/21 [Duoneb 0.5 mg-3 mg/3 ml Soln] Loratadine [Claritin] 10 mg PO DAILY 03/21/21 03/21/21 Omeprazole [PriLOSEC] 20 mg PO BID 03/21/21 03/21/21 Ondansetron [Zofran] 4 mg PO TID PRN 03/21/21 03/21/21 amLODIPine BESYLATE/BENAZEPRIL 1 tab PO DAILY 03/21/21 03/21/21 [amLODIPine BESYLATE/BENAZEPRIL 5-20 mg] traZODone HCL 150 mg PO HS 03/21/21 03/21/21 Allergies Allergy/AdvReac Type Severity Reaction Status Date / Time propoxyphene AdvReac Nausea & Verified 03/21/21 16:09 [From Bri-N] Vomiting Review of Systems ROS Statement: Those systems with pertinent positive or pertinent negative responses have been documented in the HPI. Review of Systems: CONST: Denies fever EYES: Denies blurry vision ENT: Denies nasal congestion C/V: Denies Chest pain RESP: Endorses shortness of breath GI: Denies abdominal pain : Denies dysuria SKIN: Denies rash. MSK: Denies joint pain. NEURO: Denies headache ROS Other: All systems not noted in ROS Statement are negative. Past Medical History Past Medical History: GERD/Reflux, Hypertension Additional Past Medical History / Comment(s): RIGHT HAND INFECTION History of Any Multi-Drug Resistant Organisms: ESBL Date of last positivie culture/infection: 12/13/19 MDRO Source:: ESBL URINE Past Surgical History: Joint Replacement, Orthopedic Surgery, Tonsillectomy Additional Past Surgical History / Comment(s): TOTAL RIGHT KNEE REPLACED. ORTHO: RIGHT TOTATOR CUFF, RIGHT BONE SPUR. RIGHT DETACHED RETINA. BILATERAL CATARACTS. Past Anesthesia/Blood Transfusion Reactions: Motion Sickness, Postoperative Nausea & Vomiting (PONV) Past Psychological History: No Psychological Hx Reported Smoking Status: Never smoker Past Alcohol Use History: None Reported Past Drug Use History: None Reported - Past Family History Brother(s) Family Medical History: Cancer Daughter(s) Family Medical History: Cancer Mother Family Medical History: Cancer Additional Family Medical History / Comment(s): LUNG CANCER. Sister(s) Family Medical History: Cancer Additional Family Medical History / Comment(s): Skin Cancer. General Exam - General Exam Comments Initial Comments: General: Appears in mild respiratory distress. HEAD: Normal with no signs of head trauma. EYES: PERRLA, EOMI, conjunctiva normal, no discharge. ENT: Hearing grossly intact, normal oropharynx. RESPIRATORY: Somewhat reduced breath sounds on the right the base. Mildly increased work of breathing. C/V: Regular rate and rhythm. S1 and S2 auscultated, no edema, peripheral pulses 2+ and intact throughout ABD: Abd is soft, nontender, nondistended EXT: Normal range of motion, no obvious deformity SKIN: No rashes or lesions observed on exposed skin. NEURO: Alert and oriented x 4. Cranial nerves II-XII intact. No focal sensory or strength deficits. Limitations: no limitations Course Vital Signs 03/21/21 03/21/21 13:52 16:48 Temperature 97.9 F Pulse Rate 70 72 Respiratory 26 H 20 Rate Blood Pressure 158/85 153/74 O2 Sat by Pulse 91 L 94 L Oximetry Medical Decision Making - Medical Decision Making Based on the patient's presentation and physical exam, she has bilateral pleural effusions causing mild hypoxic respiratory distress. We will obtain a cardiac work up, however patient requires admission for pleural effusion drainage. She was in agreement this plan. Patient was started on oxygen and her oxygen saturation improved as did her work of breathing. I do not believe that an urgent paracentesis is required at this time. Patient's EKG shows no signs of acute ischemia. Chest x-ray redemonstrates the right sided pleural effusion. Laboratory studies are remarkable for a negative troponin. LDH is 564. BNP is 221. The remainder of her labs are negative. Covid is negative.I did inform the patient that the CT imaging that she obtained a few days ago did show foci in the liver that was concerning for metastasis. We discussed this and she expressed understanding. She'll be evaluated further on an inpatient basis. On reevaluation, patient's work of breathing is improved. Hypoxia is improved as well on 2 L nasal cannula. I updated her on the results of her labs and imaging and that she'll be admitted to the hospital. Patient was in agreement this plan. I did consult IR for percutaneous drainage of the patient's pleural effusion. I spoke with the admitting physician, Dr. Fitch who accepted the patient. Patient will be admitted to a telemetry bed in serious condition. - Lab Data Result diagrams: 03/21/21 14:47 03/21/21 14:36 Lab Results 03/21/21 03/21/21 03/21/21 Range/Units 14:36 14:47 14:47 WBC 9.5 (3.8-10.6) k/uL RBC 4.62 (3.80-5.40) m/uL Hgb 14.7 (11.4-16.0) gm/dL Hct 43.0 (34.0-46.0) % MCV 93.1 (80.0-100.0) fL MCH 31.8 (25.0-35.0) pg MCHC 34.2 (31.0-37.0) g/dL RDW 14.0 (11.5-15.5) % Plt Count 243 (150-450) k/uL MPV 7.0 Neutrophils % 76 % Lymphocytes % 12 % Monocytes % 9 % Eosinophils % 1 % Basophils % 1 % Neutrophils # 7.2 (1.3-7.7) k/uL Lymphocytes # 1.2 (1.0-4.8) k/uL Monocytes # 0.8 (0-1.0) k/uL Eosinophils # 0.1 (0-0.7) k/uL Basophils # 0.0 (0-0.2) k/uL PT 10.7 (9.0-12.0) sec INR 1.0 (<1.2) APTT 22.3 (22.0-30.0) sec Sodium 137 (137-145) mmol/L Potassium 4.4 (3.5-5.1) mmol/L Chloride 109 H (98-107) mmol/L Carbon Dioxide 22 (22-30) mmol/L Anion Gap 6 mmol/L BUN 10 (7-17) mg/dL Creatinine 0.52 (0.52-1.04) mg/dL Est GFR (CKD-EPI)AfAm >90 (>60 ml/min/1.73 sqM) Est GFR (CKD-EPI)NonAf >90 (>60 ml/min/1.73 sqM) Glucose 103 H (74-99) mg/dL Calcium 9.5 (8.4-10.2) mg/dL Total Bilirubin 0.7 (0.2-1.3) mg/dL AST 35 (14-36) U/L ALT 28 (4-34) U/L Alkaline Phosphatase 103 (38-126) U/L Lactate Dehydrogenase (313-618) U/L Troponin I (0.000-0.034) ng/mL NT-Pro-B Natriuret Pep pg/mL Total Protein 7.2 (6.3-8.2) g/dL Albumin 3.8 (3.5-5.0) g/dL 03/21/21 03/21/21 03/21/21 Range/Units 14:47 14:47 14:47 WBC (3.8-10.6) k/uL RBC (3.80-5.40) m/uL Hgb (11.4-16.0) gm/dL Hct (34.0-46.0) % MCV (80.0-100.0) fL MCH (25.0-35.0) pg MCHC (31.0-37.0) g/dL RDW (11.5-15.5) % Plt Count (150-450) k/uL MPV Neutrophils % % Lymphocytes % % Monocytes % % Eosinophils % % Basophils % % Neutrophils # (1.3-7.7) k/uL Lymphocytes # (1.0-4.8) k/uL Monocytes # (0-1.0) k/uL Eosinophils # (0-0.7) k/uL Basophils # (0-0.2) k/uL PT (9.0-12.0) sec INR (<1.2) APTT (22.0-30.0) sec Sodium (137-145) mmol/L Potassium (3.5-5.1) mmol/L Chloride (98-107) mmol/L Carbon Dioxide (22-30) mmol/L Anion Gap mmol/L BUN (7-17) mg/dL Creatinine (0.52-1.04) mg/dL Est GFR (CKD-EPI)AfAm (>60 ml/min/1.73 sqM) Est GFR (CKD-EPI)NonAf (>60 ml/min/1.73 sqM) Glucose (74-99) mg/dL Calcium (8.4-10.2) mg/dL Total Bilirubin (0.2-1.3) mg/dL AST (14-36) U/L ALT (4-34) U/L Alkaline Phosphatase (38-126) U/L Lactate Dehydrogenase 564 (313-618) U/L Troponin I <0.012 (0.000-0.034) ng/mL NT-Pro-B Natriuret Pep 221 pg/mL Total Protein (6.3-8.2) g/dL Albumin (3.5-5.0) g/dL - EKG Data -: EKG Interpreted by Me EKG Comments: 12-lead Electrocardiogram Interpretation Note EKG was reviewed and interpreted by myself. 12-lead ECG performed at 1428 is interpreted by me as revealing normal sinus rhythm at a rate of 68 beats per minute. [place] is normal. NV intervals 202 ms, QRS duration is 80 ms, QTc is 433 ms.. There were no ST or T wave abnormalities to suggest myocardial ischemia or injury. R wave progression across the precordium was satisfactory. By my interpretation this EKG is non-diagnostic for acute ischemia. Disposition Clinical Impression: Pleural effusion, Dyspnea, Acute respiratory failure with hypoxia Disposition: ADMITTED IP TO THIS HOSP Condition: Serious
[2021-03-21] MEDS ORDERED: ONDANSETRON 4 MG TAB PO PRN (16:33)
[2021-03-21] MEDS ORDERED: IPRATROPIUM-ALBUTEROL 3 ML NEB INHALATION PRN (16:33)
--- NOTE | 2021-03-21 17:34 | P.HPIM ---
History of Present Illness H&P Date: 03/21/21 Chief Complaint: Shortness of breath 75-year-old woman with history of breast cancer status post bilateral mastectomy, chemoradiation, hypertension, dizziness presented with shortness of breath. Patient says that she's had approximately 10 days of shortness of breath, gradually worsening. Her exercise tolerance has decreased over the last week. On Wednesday of last week she went to see her primary care physician who noticed that patient had fluid in lungs and recommended she go to the emergency room for evaluation. She went to [facility] and spent approximately 5 hours there, chest x-ray at that time noted right-sided pleural effusion, however, she was discharged without any further workup. Since that time, she's continued to have ongoing symptoms and worsening shortness of breath, prompting her reevaluation today in our ER. Patient denies fevers, chills, nausea, vomiting, chest pain, palpitations, syncope, presyncope, cough, abdominal pain, dysuria, dyschezia, numbness/weakness of extremities. Patient does have a history of breast cancer status post bilateral mastectomy in 2018 followed by chemoradiation into the early . Since that time she's been told that she's had no evidence of recurrence. Otherwise, patient has a history of hypertension and chronic dizzy spells for which she takes blood pressure medications and meclizine. Patient is afebrile, 91% on room air, saturating better with 2 L of oxygen without any further dyspnea. Chest x-ray read demonstrates right-sided pleural effusion to the apex. Review of Systems All Systems reviewed and pertinent positives and negatives noted in HPI, all other symptoms are negative Past Medical History Past Medical History: GERD/Reflux, Hypertension Additional Past Medical History / Comment(s): RIGHT HAND INFECTION History of Any Multi-Drug Resistant Organisms: ESBL Date of last positivie culture/infection: 12/13/19 MDRO Source:: ESBL URINE Past Surgical History: Joint Replacement, Orthopedic Surgery, Tonsillectomy Additional Past Surgical History / Comment(s): TOTAL RIGHT KNEE REPLACED. ORTHO: RIGHT TOTATOR CUFF, RIGHT BONE SPUR. RIGHT DETACHED RETINA. BILATERAL CATARACTS. Past Anesthesia/Blood Transfusion Reactions: Motion Sickness, Postoperative Nausea & Vomiting (PONV) Past Psychological History: No Psychological Hx Reported Smoking Status: Never smoker Past Alcohol Use History: None Reported Past Drug Use History: None Reported - Past Family History Brother(s) Family Medical History: Cancer Daughter(s) Family Medical History: Cancer Mother Family Medical History: Cancer Additional Family Medical History / Comment(s): LUNG CANCER. Sister(s) Family Medical History: Cancer Additional Family Medical History / Comment(s): Skin Cancer. Medications and Allergies Home Medications Medication Instructions Recorded Confirmed Type Labetalol [Trandate] 400 mg PO BID 03/27/15 03/21/21 History Meclizine [Antivert] 25 mg PO BID 03/27/15 03/21/21 History Vit C/E/Zn/Coppr/Lutein/Zeaxan 1 tab PO BID 11/28/19 03/21/21 History [Preservision Areds 2 Softgel] Cefuroxime Axetil [Ceftin] 500 mg PO BID 03/21/21 03/21/21 History Clotrimazole/Betameth Cream 1 applic TOPICAL BID PRN 03/21/21 03/21/21 History [Lotrisone] Cyanocobalamin (Vitamin B-12) 2,000 mcg PO DAILY 03/21/21 03/21/21 History [Vitamin B-12] Ipratropium-Albuterol Nebulize 3 ml INHALATION RT-Q4H PRN 03/21/21 03/21/21 History [Duoneb 0.5 mg-3 mg/3 ml Soln] Loratadine [Claritin] 10 mg PO DAILY 03/21/21 03/21/21 History Omeprazole [PriLOSEC] 20 mg PO BID 03/21/21 03/21/21 History Ondansetron [Zofran] 4 mg PO TID PRN 03/21/21 03/21/21 History amLODIPine BESYLATE/BENAZEPRIL 1 tab PO DAILY 03/21/21 03/21/21 History [amLODIPine BESYLATE/BENAZEPRIL 5-20 mg] traZODone HCL 150 mg PO HS 03/21/21 03/21/21 History Allergies Allergy/AdvReac Type Severity Reaction Status Date / Time propoxyphene AdvReac Nausea & Verified 03/21/21 16:09 [From Bri-N] Vomiting Physical Exam Osteopathic Statement: *. No significant issues noted on an osteopathic structural exam other than those noted in the History and Physical/Consult. Vitals: Vital Signs Temp Pulse Resp BP Pulse Ox 03/21/21 16:48 72 20 153/74 94 L 03/21/21 13:52 97.9 F 70 26 H 158/85 91 L Intake and Output 03/21/21 03/21/21 03/21/21 06:59 14:59 22:59 Other: Weight 75.75 kg Gen: awake, alert HEENT: normocephalic, atraumatic, good hearing acuity, moist mucous membranes Resp: good air exchange, breathing comfortably with no accessory muscle use, diminished lung sounds on the right crackles, clear lung sounds on the left CVS: good distal perfusion x 4, regular rate and rhythm without murmurs GI: soft, NTTP, ND : no SPT, no CVAT, horner catheter not present MSK: Bilateral pitting edema, no clubbing Neuro: non-focal, moving all extremities Psych: cooperative, euthymic mood Results CBC & Chem 7: 03/21/21 14:47 03/21/21 14:36 Labs: Abnormal Lab Results - Last 24 Hours (Table) 03/21/21 Range/Units 14:36 Chloride 109 H (98-107) mmol/L Glucose 103 H (74-99) mg/dL Assessment and Plan Assessment: Right-sided pleural effusion History of breast cancer -Admit inpatient, telemetry -Pulmonology consult for thoracentesis -Oxygen as needed -Albuterol as needed Hypertension Dizziness -Resume home Norvasc, LAKSHMI inhibitor, labetalol -Resume home meclizine Patient is a DNR/DNI Patient would like her granddaughter to be her next of kin/decision-maker if needed due to her having dementia
[2021-03-21] MEDS: PANTOPRAZOLE 40 MG TABLET PO SCH (20:54)
[2021-03-21] MEDS: traZODone HCL 50 MG TAB PO SCH (21:40)
[2021-03-21] MEDS: MECLIZINE 25 MG TAB PO SCH (21:40)
[2021-03-21] MEDS: VIT A,C & E-LUTEIN-MINERALS 1 EACH TAB PO SCH (23:18)
[2021-03-21] MEDS: LABETALOL 200 MG TAB PO SCH (23:18)
[2021-03-22 07:22] LABS: Basophils # (A) 0.1 k/uL (0-0.2); Basophils % (A) 1 %; Eosinophils # (A) 0.1 k/uL (0-0.7); Eosinophils % (A) 1 %; HCT 41.6 % (34.0-46.0); HGB 14.4 gm/dL (11.4-16.0); Lymphocytes # (A) 1.1 k/uL (1.0-4.8); Lymphocytes % (A) 13 %; MCH 32.5 pg (25.0-35.0); MCHC 34.6 g/dL (31.0-37.0); MCV 93.9 fL (80.0-100.0); Mean Platelet Volume 7.2; Monocytes # (A) 0.8 k/uL (0-1.0); Monocytes % (A) 9 %; Neutrophils # (A) 6.5 k/uL (1.3-7.7); Neutrophils % (A) 75 %; Platelet Count 231 k/uL (150-450); RBC 4.43 m/uL (3.80-5.40); WBC 8.7 k/uL (3.8-10.6)
--- NOTE | 2021-03-22 08:59 | US ---
EXAMINATION TYPE: US chest DATE OF EXAM: 03/22/2021 COMPARISON: X-ray from yesterday. CT thorax 4 days ago. CLINICAL HISTORY: dyspnea. Pleural effusion. TECHNIQUE: Targeted ultrasound of the posterior lower right hemithorax EXAM MEASUREMENTS: Right Pleural Effusion pocket size: 10.7 cm Right skin surface to fluid distance: 2.1 cm Lung tissue noted at 4.4 cm. Right side marked for possible thoracentesis outside the dept. Pulmonologists are able to review the images in the patient?s EMR. Images saved confirming moderate to borderline large size right pleural effusion which correlates wit h most recent x-ray IMPRESSIONS: As above.
[2021-03-22] MEDS: PANTOPRAZOLE 40 MG TABLET PO SCH (09:07)
[2021-03-22] MEDS: lisinopriL 20 MG TAB PO SCH (09:07)
[2021-03-22] MEDS: MECLIZINE 25 MG TAB PO SCH ×2 (09:07→20:35)
[2021-03-22] MEDS: amLODIPine 5 MG TAB PO SCH (09:07)
[2021-03-22] MEDS: CYANOCOBALAMIN 500 MCG TAB PO SCH (09:07)
[2021-03-22] MEDS: LORATADINE 10 MG TAB PO SCH (09:07)
[2021-03-22] MEDS: LABETALOL 200 MG TAB PO SCH ×2 (09:18→20:34)
[2021-03-22] MEDS: VIT A,C & E-LUTEIN-MINERALS 1 EACH TAB PO SCH ×2 (09:18→20:35)
--- NOTE | 2021-03-22 11:42 | P.PN ---
Subjective Progress Note Date: 03/22/21 No new complaints today, breathing is okay with the oxygen. Denies pain. Objective - Vital Signs Vital signs: Vital Signs Temp 98.4 F 03/22/21 08:00 Pulse 76 03/22/21 08:00 Resp 18 03/22/21 08:00 BP 137/69 03/22/21 08:00 Pulse Ox 96 03/22/21 08:00 Intake & Output 03/21/21 03/22/21 03/22/21 18:59 06:59 18:59 Intake Total 300 Balance 300 Weight 75.75 kg Intake: Oral 300 Other: Voiding Method Toilet Toilet # Voids 1 - Exam Gen: awake, alert HEENT: normocephalic, atraumatic, good hearing acuity, moist mucous membranes Resp: good air exchange, breathing comfortably with no accessory muscle use, diminished lung sounds on the right crackles, clear lung sounds on the left CVS: good distal perfusion x 4, regular rate and rhythm without murmurs GI: soft, NTTP, ND : no SPT, no CVAT, horner catheter not present MSK: Bilateral pitting edema, no clubbing Neuro: non-focal, moving all extremities Psych: cooperative, euthymic mood - Labs CBC & Chem 7: 03/22/21 06:20 03/21/21 14:36 Labs: Abnormal Lab Results - Last 24 Hours (Table) 03/21/21 Range/Units 14:36 Chloride 109 H (98-107) mmol/L Glucose 103 H (74-99) mg/dL Assessment and Plan Assessment: Right-sided pleural effusion History of breast cancer -Admit inpatient, telemetry -Pulmonology consult for thoracentesis -Oxygen as needed -Albuterol as needed Hypertension Dizziness -Resume home Norvasc, LAKSHMI inhibitor, labetalol -Resume home meclizine Patient is a DNR/DNI Patient would like her granddaughter to be her next of kin/decision-maker if needed due to her having dementia
[2021-03-22 11:43] LABS: African American GFR (CKD) 102.6 (60.0-200.0); Anion Gap 12.2 mmol/L (10.00-18.00); BUN/Creat Ratio 16.33 Ratio (12.00-20.00); Blood Urea Nitrogen 9.8 mg/dL (9.0-27.0); Calcium 9.4 mg/dL (8.7-10.3); Carbon Dioxide 23.8 mmol/L (20.0-27.5); Non-African American GFR(CKD) 88.5 (60.0-200.0); Potassium 3.9 mmol/L (3.5-5.5)
[2021-03-22] MEDS: ACETAMINOPHEN TAB 325 MG TAB PO PRN ×2 (15:00→20:34)
--- NOTE | 2021-03-22 15:31 | XR ---
EXAMINATION TYPE: XR chest 1V portable DATE OF EXAM: 03/22/2021 COMPARISON: Yesterday HISTORY: Right-sided thoracentesis TECHNIQUE: 2 view FINDINGS: There is some blunting of the right costophrenic angle. There is no heart failure. There ar e chest leads. Left lung is fairly clear. There is some coarsening of the interstitial markings. IMPRESSION: There is significant decrease in the right pleural effusion compared to yesterday. No def inite pneumothorax. Mild probably fibrosis.
--- NOTE | 2021-03-22 15:35 | PCN ---
PROCEDURE NOTE RIGHT-SIDED THORACENTESIS: PREOPERATIVE DIAGNOSIS: Right pleural effusion. POSTOP DIAGNOSIS: Right pleural effusion. OPERATORS: Dr. Kessler and Dr. Foreman. A time-out was completed verifying correct patient, procedure, site, positioning , and implant (s) or special equipment if applicable. Ultrasound guidance was used and appropriate fluid pocket was identified and marked. Patient was positioned, prepped and draped in usual sterile fashion. Lidocaine was used to anesthetize the area. A Thoracentesis catheter was introduced into the pleural space and fluid was removed. Blood loss was none. A chest x-ray was ordered to evaluate for pneumothorax. Total Fluid Removed: 1450 mL Color of Fluid: Dark yellow fluid Fluid was sent for appropriate laboratory tests. Patient tolerated the procedure well and there were no complications. There was informed consent and universal timeout. The right posterior chest was marked by ultrasound. We used standard thoracentesis tray. 1450 mL of dark yellow fluid was removed from the right pleural space. The patient tolerated the procedure well. An x-ray was ordered to rule out pneumothorax. The fluid will be sent for analysis including chemistry, cytology, and microbiology. There was no immediate complication. MMODL / IJN: [id number] /
--- NOTE | 2021-03-22 16:45 | P.CNPUL ---
History of Present Illness Consult date: 03/22/21 Requesting physician: Joel Fitch Reason for consult: dyspnea, pleural effusion, abnormal CXR/CT Chief complaint: Shortness of breath History of present illness: This is a very pleasant 75-year-old female patient with a history of hypertension, gastroesophageal reflux disease, ESBL in the urine, lifelong nonsmoker. She also carries a diagnosis of breast cancer though she believes it has been in remission she had bilateral mastectomies in 2018 and chemoradiation. She had been having complaints of increasing shortness of breath and a computed tomography scan of the chest revealed a large right-sided pleural effusion. She was initially at [facility] and waited 5 hours for a thoracentesis that didn't happen and then she left. She presented here yesterday for the same. He is seen today in consultation on the regular medical floor. She is awake and alert in no acute distress. She is maintaining good O2 saturations in the 90s on 2 L/m per nasal cannula. She's afebrile. Hemodynamically stable. Chest x-ray reveals a moderate to large size right pleural effusion. Her son did confirm a significant pocket measuring 10.7 cm. His lung tissue noted at 4.4 cm. White count 8.7. Hemoglobin 14.4. Sodium 141. Potassium 3.9. Creatinine 0.6. Ruth virus by PCR not detected. Review of Systems REVIEW OF SYSTEMS: CONSTITUTIONAL: Denies any recent significant weight loss or weight gain. EYES: Denies change in vision. EARS, NOSE, MOUTH, THROAT: Denies headaches, denies sore throat. CARDIOVASCULAR: Denies chest pain, palpitations or syncopal episodes. RESPIRATORY: Positive for shortness of breath, cough, congestion no hemoptysis. GASTROINTESTINAL: Denies change in appetite, denies abdominal pain GENITOURINARY: Denies hematuria, denies infections. MUSKULOSKELETAL: Denies pain, denies swelling. INTEGUMENTARY: Denies rash, denies eczema. NEUROLOGICAL: Denies recent memory loss, no recent seizure activity. PSYCHIATRIC: Denies anxiety, denies depression. HEMATOLOGIC/LYMPHATIC: Denies anemia, denies enlarged lymph nodes. Past Medical History Past Medical History: GERD/Reflux, Hypertension Additional Past Medical History / Comment(s): RIGHT HAND INFECTION History of Any Multi-Drug Resistant Organisms: ESBL Date of last positivie culture/infection: 12/13/19 MDRO Source:: ESBL URINE Past Surgical History: Joint Replacement, Orthopedic Surgery, Tonsillectomy Additional Past Surgical History / Comment(s): TOTAL RIGHT KNEE REPLACED. ORTHO: RIGHT TOTATOR CUFF, RIGHT BONE SPUR. RIGHT DETACHED RETINA. BILATERAL CATARACTS. Past Anesthesia/Blood Transfusion Reactions: Motion Sickness, Postoperative Nausea & Vomiting (PONV) Past Psychological History: No Psychological Hx Reported Smoking Status: Never smoker Past Alcohol Use History: None Reported Past Drug Use History: None Reported - Past Family History Brother(s) Family Medical History: Cancer Daughter(s) Family Medical History: Cancer Mother Family Medical History: Cancer Additional Family Medical History / Comment(s): LUNG CANCER. Sister(s) Family Medical History: Cancer Additional Family Medical History / Comment(s): Skin Cancer. Medications and Allergies Home Medications Medication Instructions Recorded Confirmed Type Labetalol [Trandate] 400 mg PO BID 03/27/15 03/21/21 History Meclizine [Antivert] 25 mg PO BID 03/27/15 03/21/21 History Vit C/E/Zn/Coppr/Lutein/Zeaxan 1 tab PO BID 11/28/19 03/21/21 History [Preservision Areds 2 Softgel] Cefuroxime Axetil [Ceftin] 500 mg PO BID 03/21/21 03/21/21 History Clotrimazole/Betameth Cream 1 applic TOPICAL BID PRN 03/21/21 03/21/21 History [Lotrisone] Cyanocobalamin (Vitamin B-12) 2,000 mcg PO DAILY 03/21/21 03/21/21 History [Vitamin B-12] Ipratropium-Albuterol Nebulize 3 ml INHALATION RT-Q4H PRN 03/21/21 03/21/21 History [Duoneb 0.5 mg-3 mg/3 ml Soln] Loratadine [Claritin] 10 mg PO DAILY 03/21/21 03/21/21 History Omeprazole [PriLOSEC] 20 mg PO BID 03/21/21 03/21/21 History Ondansetron [Zofran] 4 mg PO TID PRN 03/21/21 03/21/21 History amLODIPine BESYLATE/BENAZEPRIL 1 tab PO DAILY 03/21/21 03/21/21 History [amLODIPine BESYLATE/BENAZEPRIL 5-20 mg] traZODone HCL 150 mg PO HS 03/21/21 03/21/21 History Allergies Allergy/AdvReac Type Severity Reaction Status Date / Time propoxyphene AdvReac Nausea & Verified 03/21/21 16:09 [From Darvocet-N] Vomiting Physical Exam Vitals: Vital Signs Temp Pulse Pulse Resp BP BP Pulse Ox 03/22/21 13:23 98.1 F 76 16 107/69 93 L 03/22/21 08:00 98.4 F 76 18 137/69 96 03/22/21 04:45 98.1 F 71 20 138/71 96 03/21/21 21:20 79 19 146/79 95 03/21/21 19:58 84 19 144/88 95 03/21/21 16:48 72 20 153/74 94 L Intake and Output 03/22/21 03/22/21 03/22/21 06:59 14:59 22:59 Intake Total 200 Balance 200 Intake: Oral 200 Other: Voiding Method Toilet # Voids 1 GENERAL EXAM: Alert, very pleasant 75-year-old female patient, on 2 L nasal florentin maikel, fairly, comfortable in no apparent distress. HEAD: Normocephalic. EYES: Normal reaction of pupils, equal size. NOSE: Clear with pink turbinates. THROAT: No erythema or exudates. NECK: No masses, no JVD. CHEST: No chest wall deformity. LUNGS: Equal air entry with rales in the right lung base, diminished. CVS: S1 and S2 normal with no audible murmur, regular rhythm. ABDOMEN: No hepatosplenomegaly, normal bowel sounds, no guarding or rigidity. SPINE: No scoliosis or deformity SKIN: No rashes CENTRAL NERVOUS SYSTEM: No focal deficits, tone is normal in all 4 extremities. EXTREMITIES: There is no peripheral edema. No clubbing, no cyanosis. Peripheral pulses are intact. Results - Laboratory Findings CBC and BMP: 03/22/21 06:20 03/22/21 06:20 PT/INR, D-dimer PT 10.7 sec (9.0-12.0) 03/21/21 14:47 INR 1.0 (<1.2) 03/21/21 14:47 Abnormal lab findings: Abnormal Labs 03/21/21 14:36 Chloride 109 H Glucose 103 H - Diagnostic Findings Chest x-ray: image reviewed Assessment and Plan Assessment: 1 Acute hypoxic respiratory failure secondary to large right-sided pleural effusion. Status post right-sided thoracentesis on 03/22/2021 with 1450 ML's turbid fluid removed. Pathology pending 2 History of breast cancer, stated in remission, status post bilateral mastectomy in 2018 followed by chemoradiation. 3 Lifelong nonsmoker 4 Hypertension 5 Gastroesophageal reflux disease 6 History of ESBL in the urine Plan: The patient was seen and evaluated by Dr. Kessler He did go ahead and perform a right-sided thoracentesis 1450 ML's of turbid fluid removed Chest x-ray revealed no evidence of pneumothorax She is cleared for discharge from the pulmonary standpoint Follow-up in the office in 1 week I, the cosigning physician, performed a history & physical examination of the patient. Lungs sounds crackles, diminished in the right lung base. Maintaining good O2 saturations in the 90s on room air. I discussed the assessment and plan of care with my nurse practitioner, Kelly Foreman. I attest to the above consultation as dictated by her. Time with Patient: Greater than 30
[2021-03-22] MEDS: traZODone HCL 50 MG TAB PO SCH (20:34)
[2021-03-22 21:14] LABS: Color,BF Yellow
[2021-03-22 21:15] LABS: Appearance,BF Clear; Nucleated Cells, Body Fluid 1060 /uL; RBC, Body Fluid 2305 /uL
[2021-03-23 00:35] LABS: Mononuclear WBC,Body Fluid 29 %; Polynuclear WBC,Body Fluid 71 %; Total Cells Counted,Body Fluid 100
[2021-03-23 05:48] LABS: Basophils % (A) 0 %; Eosinophils # (A) 0.1 k/uL (0-0.7); Eosinophils % (A) 1 %; HGB 14.7 gm/dL (11.4-16.0); Lymphocytes # (A) 1.2 k/uL (1.0-4.8); Lymphocytes % (A) 10 %; MCH 31.3 pg (25.0-35.0); MCHC 33.4 g/dL (31.0-37.0); MCV 93.8 fL (80.0-100.0); Mean Platelet Volume 7.7; Monocytes # (A) 1.1 k/uL (0-1.0); Monocytes % (A) 10 %; Neutrophils # (A) 8.6 k/uL (1.3-7.7); Neutrophils % (A) 76 %; Platelet Count 236 k/uL (150-450); RBC 4.69 m/uL (3.80-5.40); RDW 13.3 % (11.5-15.5); WBC 11.3 k/uL (3.8-10.6)
[2021-03-23 08:59] LABS: Glucose, BF Source Pleural Fluid; Glucose, Body Fluid 201 mg/dL; Total Protein, Body Fluid 1578 mg/dL
[2021-03-23] MEDS: CYANOCOBALAMIN 500 MCG TAB PO SCH (09:25)
[2021-03-23] MEDS: VIT A,C & E-LUTEIN-MINERALS 1 EACH TAB PO SCH (09:25)
[2021-03-23] MEDS: LABETALOL 200 MG TAB PO SCH (09:25)
[2021-03-23] MEDS: amLODIPine 5 MG TAB PO SCH (09:25)
[2021-03-23] MEDS: MECLIZINE 25 MG TAB PO SCH (09:25)
[2021-03-23] MEDS: lisinopriL 20 MG TAB PO SCH (09:25)
[2021-03-23] MEDS: LORATADINE 10 MG TAB PO SCH (09:25)
[2021-03-23] MEDS: PANTOPRAZOLE 40 MG TABLET PO SCH (09:25)
[2021-03-23 10:39] LABS: Magnesium 1.8 mg/dL (1.5-2.4)
[2021-03-23 10:40] LABS: African American GFR (CKD) 56.5 (60.0-200.0); BUN/Creat Ratio 21.82 Ratio (12.00-20.00); Calcium 9.7 mg/dL (8.7-10.3); Carbon Dioxide 19.2 mmol/L (20.0-27.5); Non-African American GFR(CKD) 48.7 (60.0-200.0); Potassium 4.5 mmol/L (3.5-5.5)
[2021-03-23 11:51] VITALS: PULSE 70; RESP 18; TEMP 98
[2021-03-23 12:52] VITALS: BP 105/58
--- NOTE | 2021-03-23 16:48 | P.PN ---
Subjective Progress Note Date: 03/23/21 Principal diagnosis: Pleural effusion This is a very pleasant 75-year-old female patient with a history of hypertension, gastroesophageal reflux disease, ESBL in the urine, lifelong nonsmoker. She also carries a diagnosis of breast cancer though she believes it has been in remission she had bilateral mastectomies in 2018 and chemoradiation. She had been having complaints of increasing shortness of breath and a computed tomography scan of the chest revealed a large right-sided pleural effusion. She was initially at [facility] and waited 5 hours for a thora centesis that didn't happen and then she left. She presented here yesterday for the same. He is seen today in consultation on the regular medical floor. She is awake and alert in no acute distress. She is maintaining good O2 saturations in the 90s on 2 L/m per nasal cannula. She's afebrile. Hemodynamically stable. Chest x-ray reveals a moderate to large size right pleural effusion. Her son did confirm a significant pocket measuring 10.7 cm. His lung tissue noted at 4.4 cm. White count 8.7. Hemoglobin 14.4. Sodium 141. Potassium 3.9. Creatinine 0.6. Ruth virus by PCR not detected. The patient is seen today 03/23/2021 in follow-up on the regular medical floor. She is awake and alert in no acute distress. Up ambulating in her room. Denies any worsening shortness of breath, cough or congestion. She did undergo thoracentesis yesterday by Dr. Kessler and 1450 ML's of yellow fluid was returned. Total protein 1.5. Transudative in nature. Cultures and pathology pending. [facility] te count 11.3. Hemoglobin 14.7. Sodium 140. Potassium 4.5. Creatinine 1.1. Objective - Vital Signs Vital signs: Vital Signs Temp 98.0 F 03/23/21 11:49 Pulse 70 03/23/21 11:49 Resp 18 03/23/21 11:49 BP 105/58 03/23/21 12:52 Pulse Ox 93 L 03/23/21 11:49 Intake & Output 03/22/21 03/23/21 03/23/21 18:59 06:59 18:59 Intake Total 540 200 Balance 540 200 Intake: Oral 540 200 Other: Voiding Method Toilet Toilet Toilet # Voids 1 1 1 - Exam GENERAL EXAM: Alert, very pleasant 75-year-old female patient, on room air, comfortable in no apparent distress. HEAD: Normocephalic. EYES: Normal reaction of pupils, equal size. NOSE: Clear with pink turbinates. THROAT: No erythema or exudates. NECK: No masses, no JVD. CHEST: No chest wall deformity. LUNGS: Equal air entry with rales in the right lung base, diminished. CVS: S1 and S2 normal with no audible murmur, regular rhythm. ABDOMEN: No hepatosplenomegaly, normal bowel sounds, no guarding or rigidity. SPINE: No scoliosis or deformity SKIN: No rashes CENTRAL NERVOUS SYSTEM: No focal deficits, tone is normal in all 4 extremities. EXTREMITIES: There is no peripheral edema. No clubbing, no cyanosis. Peripheral pulses are intact. - Labs CBC & Chem 7: 03/23/21 05:17 03/23/21 05:17 Labs: Abnormal Lab Results - Last 24 Hours (Table) 03/23/21 03/23/21 Range/Units 05:17 05:17 WBC 11.3 H (3.8-10.6) k/uL Neutrophils # 8.6 H (1.3-7.7) k/uL Monocytes # 1.1 H (0-1.0) k/uL Carbon Dioxide 19.2 L (20.0-27.5) mmol/L Est GFR (CKD-EPI)AfAm 56.5 L (60.0-200.0) Est GFR (CKD-EPI)NonAf 48.7 L (60.0-200.0) BUN/Creatinine Ratio 21.82 H (12.00-20.00) Ratio Glucose 123 H (70-110) mg/dL Assessment and Plan Assessment: 1 Acute hypoxic respiratory failure secondary to large right-sided pleural effusion. Status post right-sided thoracentesis on 03/22/2021 with 1450 ML's turbid fluid removed. Pathology pending 2 History of breast cancer, stated in remission, status post bilateral mastectomy in 2018 followed by chemoradiation. 3 Lifelong nonsmoker 4 Hypertension 5 Gastroesophageal reflux disease 6 History of ESBL in the urine Plan: The patient was seen and evaluated by Dr. Kessler She is cleared for discharge from the pulmonary standpoint Follow-up in the office in 1 week I, the cosigning physician, performed a history & physical examination of the patient. Lungs sounds crackles, diminished in the right lung base. Maintaining good O2 saturations in the 90s on room air. I discussed the assessment and plan of care with my nurse practitioner, Kelly Foreman. I attest to the above note as dictated by her.
--- NOTE | 2021-03-23 17:16 | P.DS ---
Providers Date of admission: 03/21/21 16:01 Expected date of discharge: 03/23/21 Attending physician: Joel Fitch MD Consults: 03/21/21 16:02 Consult Physician Routine Consulting Provider: Jem Kessler Consult Reason/Comments: right pleural effusion Do you want consulting provider notified?: Yes Primary care physician: Guido Stewart MD Hospital Course: 75-year-old woman with history of breast cancer status post bilateral mastectomy, chemoradiation, hypertension, dizziness presented with shortness of breath. XR demonstrated large right sided pleural effusion. Right-sided pleural effusion History of breast cancer -Admitted inpatient, telemetry. Pulmonology consult for thoracentesis, and they pulled out 1450cc of dark yellow fluid. Cell count of fluid showed significant RBCs. Pleural Fluid Chemistries were partially back but cytology and LDH of the fluid was still pending and so it is not clear if this is transudative or exu dative, but the suspicion is exudative. Patient will f/u with pulmonary in a week to review the results of the fluid and determine next steps. She was discharged home with her symptoms having improved. Hypertension Dizziness -Resumed home Norvasc, LAKSHMI inhibitor, labetalol -Resumed home meclizine -No changes on discharge. I spent 33 minutes coordinating this discharge. Assessment: Gen: awake, alert HEENT: normocephalic, atraumatic, good hearing acuity, moist mucous membranes Resp: good air exchange, breathing comfortably with no accessory muscle use, diminished lung sounds on the right crackles, clear lung sounds on the left CVS: good distal perfusion x 4, regular rate and rhythm without murmurs GI: soft, NTTP, ND : no SPT, no CVAT, horner catheter not present MSK: Bilateral pitting edema, no clubbing Neuro: non-focal, moving all extremities Psych: cooperative, euthymic mood Patient Condition at Discharge: Good Plan - Discharge Summary Discharge Rx Participant: Yes New Discharge Prescriptions: Continue Meclizine [Antivert] 25 mg PO BID Labetalol [Trandate] 400 mg PO BID Vit C/E/Zn/Coppr/Lutein/Zeaxan [Preservision Areds 2 Softgel] 1 tab PO BID Ondansetron [Zofran] 4 mg PO TID PRN PRN Reason: Nausea Omeprazole [PriLOSEC] 20 mg PO BID Ipratropium-Albuterol Nebulize [Duoneb 0.5 mg-3 mg/3 ml Soln] 3 ml INHALATION RT-Q4H PRN PRN Reason: Shortness Of Breath Cefuroxime Axetil [Ceftin] 500 mg PO BID Cyanocobalamin (Vitamin B-12) [Vitamin B-12] 2,000 mcg PO DAILY traZODone HCL 150 mg PO HS Loratadine [Claritin] 10 mg PO DAILY Clotrimazole/Betameth Cream [Lotrisone] 1 applic TOPICAL BID PRN PRN Reason: RASH UNDER BREASTS amLODIPine BESYLATE/BENAZEPRIL [amLODIPine BESYLATE/BENAZEPRIL 5-20 mg] 1 tab PO DAILY Discharge Medication List Labetalol [Trandate] 400 mg PO BID 03/27/15 [History] Meclizine [Antivert] 25 mg PO BID 03/27/15 [History] Vit C/E/Zn/Coppr/Lutein/Zeaxan [Preservision Areds 2 Softgel] 1 tab PO BID 11/28/19 [History] Cefuroxime Axetil [Ceftin] 500 mg PO BID 03/21/21 [History] Clotrimazole/Betameth Cream [Lotrisone] 1 applic TOPICAL BID PRN 03/21/21 [History] Cyanocobalamin (Vitamin B-12) [Vitamin B-12] 2,000 mcg PO DAILY 03/21/21 [H istory] Ipratropium-Albuterol Nebulize [Duoneb 0.5 mg-3 mg/3 ml Soln] 3 ml INHALATION RT-Q4H PRN 03/21/21 [History] Loratadine [Claritin] 10 mg PO DAILY 03/21/21 [History] Omeprazole [PriLOSEC] 20 mg PO BID 03/21/21 [History] Ondansetron [Zofran] 4 mg PO TID PRN 03/21/21 [History] amLODIPine BESYLATE/BENAZEPRIL [amLODIPine BESYLATE/BENAZEPRIL 5-20 mg] 1 tab PO DAILY 03/21/21 [History] traZODone HCL 150 mg PO HS 03/21/21 [History] Follow up Appointment(s)/Referral(s): Jem Kessler DO [Doctor of Osteopathic Medicine] - 1 Week Guido Stewart MD [Primary Care Provider] - 1-2 days Patient Instructions/Handouts: Pleural Effusion (DC) Activity/Diet/Wound Care/Special Instructions: Diet as tolerated Activity limited until seen by Discharge Disposition: HOME SELF-CARE
[2021-03-23 20:29] LABS: LDH, Body Fluid Source Pleural Fluid
== END 2021-03-23 14:39 | disposition home or self-care (01) | DRG 186 ==
LOC: EC 13:20 → 5NMEDONC 16:01
PROVIDERS: ADMIT Internal Medicine; ATTEND Internal Medicine
PROC: 0W993ZX Drainage of Right Pleural Cavity, Percutaneous Approach, Diagnostic (ICD-10-PCS; principal; 2021-03-21)
DX: J90 Pleural effusion, not elsewhere classified (principal); J96.01 Acute respiratory failure with hypoxia; Z20.822 Contact with and (suspected) exposure to COVID-19; I10 Essential (primary) hypertension; K21.9 Gastro-esophageal reflux disease without esophagitis; Z96.651 Presence of right artificial knee joint; Z66 Do not resuscitate; R42 Dizziness and giddiness; Z98.890 Other specified postprocedural states; Z98.42 Cataract extraction status, left eye; Z98.41 Cataract extraction status, right eye; Z85.3 Personal history of malignant neoplasm of breast; Z86.19 Personal history of other infectious and parasitic diseases; Z90.13 Acquired absence of bilateral breasts and nipples; Z88.5 Allergy status to narcotic agent; Z80.1 Family history of malignant neoplasm of trachea, bronchus and lung; Z80.8 Family history of malignant neoplasm of other organs or systems
CPT/HCPCS: 36415; 71045; 71046; 71260; 76604; 80048; 80053; 82945; 83615; 83735; 83880; 84157; 84484; 85025; 85610; 85730; 87635; 88108; 88305; 88341; 88342; 89050; 93005; 99285

== ENCOUNTER → 2021-04-01 | Outpatient (CLI) | payer MEDICARE, OTHER ==
[2021-04-01 16:42] LABS: African American GFR (CKD) >90 (>60 ml/min/1.73 sqM); Blood Urea Nitrogen 14 mg/dL (7-17); Non-African American GFR(CKD) 89 (>60 ml/min/1.73 sqM)
--- NOTE | 2021-04-01 18:29 | CT ---
EXAMINATION TYPE: CT abdomen w con DATE OF EXAM: 04/01/2021 COMPARISON: 10/26/2019 HISTORY: Liver disease unspecified, hx breast ca. CT DLP: 1382.50 mGycm Automated exposure control for dose reduction was used. CONTRAST: Performed with IV Contrast, patient injected with 100 mL of Isovue 300. Images obtained from the diaphragm to the iliac crests with oral and IV contrast. There is moderate right pleural effusion. Heart size is normal. There is infiltrate and atelectasis r ight lower lobe. There is no pericardial effusion. There are multiple variable-sized hypodense foci in the liver. The largest measures 2 cm and are susp icious for metastatic disease. Spleen is intact. There is no pancreatic mass. Stomach is intact. Gallbladder is intact. The bile pedro ts are not dilated. There is 1.5 cm cyst in the anterior right lobe of the liver unchanged. There is no adrenal mass. Kidneys have normal size. There are multiple bilateral renal cortical cysts that measure up to 3 cm. I see no solid renal mass. Ureters are not dilated. There is no retroperito edith adenopathy. The lumbar vertebra appear intact. There is no compression fracture. There is some s ubtle hypodensity in the L1 vertebral body on the right side. There is some hypodensity also in the S 1 vertebral body. IMPRESSION: : Multiple hypodense liver lesions suggestive of metastatic disease and appear new compared to old exam . Hypodensities in the lumbar spine. Metastatic disease is possible. Bone scan or PET CT scan would BE helpful for further evaluation if clinically indicated. Stable renal cortical cysts. There is large right pleural effusion and right lower lobe infiltrate an d atelectasis which is new compared to old exam.
== END | disposition home or self-care (01) ==
LOC: RADCTMAIN 14:58
PROVIDERS: ATTEND Family Medicine
DX: K76.9 Liver disease, unspecified (principal); N28.1 Cyst of kidney, acquired; J90 Pleural effusion, not elsewhere classified; J98.11 Atelectasis; C78.7 Secondary malignant neoplasm of liver and intrahepatic bile duct
CPT/HCPCS: 82565; 84520; 74160; 36415; Q9967

== ENCOUNTER → 2021-04-11 | Outpatient (CLI) | payer MEDICARE, OTHER ==
--- NOTE | 2021-04-14 06:29 | PE ---
EXAMINATION TYPE: PET CT fusion skull to thigh DATE OF EXAM: 04/11/2021 COMPARISON: CT abdomen April 01, 2021 and older CTs. PET/CT of July 17, 2017 HISTORY: History of bilateral breast cancer diagnosed 2018, treated with surgery and radiation enedelia tment ending 2018. TECHNIQUE: Following the intravenous administration of 9.57 mCi of F-18 FDG, whole body images are p erformed from the skull base to the midthigh. Images are reviewed on the computer in the coronal, ax ial, and sagittal planes. Reconstructed rotating images are created on independent workstation and r eviewed on the computer. A localization and attenuation correction CT is performed in conjunction w ith the PET scan. Blood glucose level equals 113. SCAN: Initial Scan FINDINGS: SKULL BASE AND NECK: No areas of suspicious abnormal hypermetabolic uptake. CHEST, MEDIASTINUM, AND HILAR REGION: Redemonstration of moderate to large size ametabolic right pleu ral effusion. Persistent abnormal right tracheobronchial lymph node measuring 2.4 x 1.7 cm axial imag e 70, max SUV is 6.73. Extension to right hilar level is present. Abnormal 1.6 x 1.5 cm subcarinal ly mph node, max SUV is 5.13. Areas of abnormal hypermetabolic uptake right hilar level anteriorly axial image 81 and infrahilar level posteriorly axial image 84, max SUV is 6.19 anteriorly. Abnormal hyper metabolic paratracheal lymph node axial image 65 and anterior superior mediastinal lymph node axial i mage 61 immediately anterior to the left brachiocephalic vein, max SUV 3.59 at this level. Bilateral breasts noted surgically absent. No suspicious hypermetabolic uptake at this level or eithe r axilla. ABDOMEN AND PELVIS: Heterogeneous uptake throughout the liver with several areas of subtle hypodensit y and hypermetabolic uptake, max SUV is 4.48 on axial image 115. Subtle lesions seen better on recent contrast-enhanced CT. Majority subcentimeter in size. A few just over 1 cm in size on recent diagnos tic CT noted. Normal excretion. Uterus surgically absent. No additional abnormal hypermetabolic uptake. OSSEOUS STRUCTURES: Abnormal hypermetabolic osseous lesions are present. For reference left iliac cre st on axial image 169, max SUV is 5.32. There are scattered sclerotic hypermetabolic lesions for refe rence right L5 lesion on axial image 160 Max SUV is 3.88. There is hypermetabolic lucent lesion poste rior T9 vertebral axial image 79, max SUV is 5.04. Additional scattered hypermetabolic osseous lesion s are present. OTHER CT: Metallic hardware from Right shoulder surgery is identified. Cardiomegaly is present. Scol iotic curvature. Exaggerated kyphosis. Scattered pelvic phleboliths. Low-lying bladder. IMPRESSION: There is diffuse osseous and hepatic metastatic disease. There is abnormal thoracic adeno nichole, primary right central lung neoplasm not excluded as detailed above.
== END | disposition home or self-care (01) ==
LOC: RADPETMAIN 11:04
PROVIDERS: ATTEND Family Medicine
DX: C78.7 Secondary malignant neoplasm of liver and intrahepatic bile duct (principal)
CPT/HCPCS: 78815; A9552

== ENCOUNTER → 2021-04-24 | Day surgery (SDC) | payer MEDICARE, OTHER ==
[~2021-04-24] MED LIST changes: -DEXAMETHASONE SOD PHOSPHATE 4 MG/ML 1 ML VIAL IV ONE; -HYDROmorphone 0.5 MG/0.5 ML SYRINGE IVP PRN; -LIDOCAINE 1% (10MG/ML) FOR IV START INTRADERMA PRN; -ONDANSETRON 4 MG/2 ML VIAL IVP ONE; +SODIUM CHLORIDE 0.9% 500 ML 500 ML in EMPTY BAG 1 BAG IV PRN
[2021-04-24 11:33] VITALS: PULSE 71; TEMP 97.6
[2021-04-24 12:14] VITALS: BP 108/63; RESP 16
--- NOTE | 2021-04-24 12:28 | XR ---
EXAMINATION TYPE: XR chest 1V portable DATE OF EXAM: 04/24/2021 COMPARISON: 03/22/2021 HISTORY: Post right thoracentesis TECHNIQUE: Single frontal view of the chest is obtained. FINDINGS: There is right-sided consolidation and small effusion. No sizable pneumothorax. Heart is e nlarged and coarsened interstitium suggests chronic interstitial lung disease or venous congestion. T here is postsurgical change right shoulder. Diffuse osteopenia. IMPRESSION: 1. No sizable pneumothorax postthoracentesis.
--- NOTE | 2021-04-24 12:47 | PCN ---
PROCEDURE NOTE PULMONARY/CRITICAL CARE PROCEDURE NOTE: PROCEDURE: Right-sided thoracentesis. PREOPERATIVE DIAGNOSIS: Right pleural effusion. POSTOP DIAGNOSIS: Right pleural effusion. Indication Pleural effusion. A time-out was completed verifying correct patient, procedure, site, positioning , and implant (s) or special equipment if applicable. Ultrasound guidance was/was not used and appropriate fluid pocket was identified and marked. Patient was positioned, prepped and draped in usual sterile fashion. Lidocaine was used to anesthetize the area. A Thoracentesis catheter was introduced into the pleural space and fluid was removed. Blood loss was none. A chest x-ray was ordered to evaluate for pneumothorax. Total Fluid Removed: 1 L. Color of Fluid: Yellow. Fluid was not sent for appropriate laboratory tests. Patient tolerated the procedure well and there were no complications. There was informed consent and universal timeout. The patient's procedure was performed by Dr. Kessler, he was the polygraph operator. The posterior right chest was marked by ultrasound. Roughly 1 L of yellow fluid was removed from the right pleural space. The patient tolerated the procedure well. There was no immediate complication. A chest x-ray was ordered to rule out pneumothorax. The fluid will not be sent for analysis as recently previous thoracentesis was sent for analysis. There was no immediate complication. A chest x-ray was ordered. If there was no pneumothorax, the patient will be discharged. I did discuss the procedure with the patient. MMODL / IJN: [id number] /
== END ==
LOC: PROCWHC3 10:07
PROVIDERS: ATTEND Internal Medicine Critical Care Medicine
DX: J90 Pleural effusion, not elsewhere classified (principal)
CPT/HCPCS: 32554; 71045

== ENCOUNTER → 2021-04-24 | Outpatient (CLI) | payer MEDICARE, OTHER ==
--- NOTE | 2021-04-24 10:11 | US ---
EXAMINATION TYPE: US chest DATE OF EXAM: 04/24/2021 COMPARISON: NONE CLINICAL HISTORY: J91.8. Right chest TECHNIQUE: Targeted ultrasound of the posterior lower right hemithorax EXAM MEASUREMENTS: Right Pleural Effusion pocket size: 6.9 cm Right skin surface to fluid distance: 2.6 cm Right side marked for possible thoracentesis outside the dept. Pulmonologists are able to review the images in the patient?s EMR. IMPRESSIONS: As above
== END | disposition home or self-care (01) ==
LOC: RADUSWWP 09:45
PROVIDERS: ATTEND Internal Medicine Critical Care Medicine
DX: J91.8 Pleural effusion in other conditions classified elsewhere (principal)
CPT/HCPCS: 76604